=== PATIENT | female | born 1965 | race Caucasian/White ===

== ENCOUNTER → 2024-12-16 | Outpatient (CLI) | payer OTHER, SELFPAY ==
[2024-12-16 11:38] LABS: EXAGEN MAILED SPECIMEN
[2024-12-16 12:06] LABS: Color, Urine Straw (Yellow); Glucose, Dipstick Normal (Normal); Ketone-Dipstick Negative (Negative); Leukocyte Esterase-Dipstick 25 /ul (Negative); Nitrite-Dipstick Negative (Negative); Occult Blood-Urine 10 /ul (Negative); Protein-Dipstick Negative (Negative); Specific Gravity, Urine 1.005 (1.002-1.030); Urine Bilirubin Dipstick Negative (Negative)
[2024-12-16 12:17] LABS: Hematocrit 44.6 % (37-47); Hemoglobin 14.6 g/dL (12.0-15.0); Immature Granulocytes Count 0.030 X10^3/uL (0.0-0.0); Mean Corp Hgb Conc 32.7 g/dL (32-36); Mean Corpuscular Volume 87.3 fL (81-99); Mean Platelet Vol. 13.7 fl (6.2-12.0); NRBC Flagged by Analyzer 0 % (0-5); POSITIVE COUNT YES; RBC Distribution Width CV 12.1 % (11.6-14.6); RBC Distribution Width SD 38.9 fl (35.1-43.9); Red Blood Count 5.11 M/mm3 (4.2-5.4); White Blood Count 7.3 K/mm3 (4.4-11.0)
[2024-12-16 12:18] LABS: Differential Indicated SCAN CRITERIA MET
[2024-12-16 12:31] LABS: Creatinine, Urine (random) 20.10 mg/dL (28.00-217.00); Protein, Urine (Random) < 6.0 mg/dL (0.0-12.0); Protein:Creat Ratio UNABLE TO CALCULATE mg/g CRE (0-200)
[2024-12-16 12:42] LABS: Platelet Count 47 K/mm3 (150-450)
[2024-12-16 12:44] LABS: AST(SGOT) 28 U/L (<=31); Alanine Aminotransfer ALT/SGPT 33 U/L (<=34); Albumin, Serum 4.5 g/dL (3.5-5.0); Alkaline Phosphatase 89 U/L (35-104); Anion Gap 13 (5-15); BUN 10 mg/dL (4-19); BUN/Creat Ratio 19.1 RATIO (10-20); CRP 4.02 mg/L (0.0-3.0); Calcium,Total 9.9 mg/dL (7.6-11.0); Carbon Dioxide 26.1 mmol/L (21.0-32.0); Chloride 98 mmol/L (98-108); Globulin 4.0 g/dL (2.2-4.2); Glucose 95 mg/dL (70-99); Potassium 3.8 mmol/L (3.3-5.1)
[2024-12-20 15:08] LABS: Dilute Russell Viper Venom 48.0 sec (0.0-47.0); Dilute Russell Viper Venom Mix 40.2 sec (0.0-40.4); Interpretation Comment: (.); PTT-LA 36.5 sec (0.0-43.5)
== END | disposition home or self-care (01) ==
LOC: MTLAB 10:34
PROVIDERS: Referring Provider Internal Medicine Rheumatology; Visit Provider Internal Medicine Rheumatology
DX: D69.3 Immune thrombocytopenic purpura (principal); M18.0 Bilateral primary osteoarthritis of first carpometacarpal joints; Q66.70 Congenital pes cavus, unspecified foot; R76.8 Other specified abnormal immunological findings in serum; R76.0 Raised antibody titer
CPT/HCPCS: 36415; 80053; 81002; 82570; 84156; 85025; 85652; 86140

== ENCOUNTER → 2025-01-10 | Outpatient (CLI) | payer OTHER, SELFPAY ==
--- OUTSIDE RECORDS SUMMARY | 2025-01-10 07:26 | XMS RPT_ITS | CCD ---
Author Organization [facility] Care Team Providers Care Computer Application Developer Name Role Phone MAINOR SANDERS, DR LUCAS Primary Care Physician CRYSTAL SANDERS, JAELYN Quiroz Attending Unavailable MAINOR SANDERS, DR LUCAS Primary Care Unavailable CLINT ARANA MD Attending Unavailjohn HAYWARD MD, DR LUCAS Primary Care Unavailable SEBILLE CORE BAKER-CHILD DEVELOPMENT INSTRUCTOR, CAROLYN Attending Sarah HAYWARD MD, DR LUCAS Primary Care Unavailable MAINOR SANDERS, DR LUCAS Primary Care Physician SHAYY HAYWARD MD Consulting Unavailable SHAYY HAYWARD MD Referring Unavailable CLINT ARANA MD Admitting Unavaila CLINT Cameron MD Primary Care Unavaila CLINT Cameron MD Attending Unavaila ble PROVIDER, UNKNOWN Consulting Unavailable PROVIDER, UNKNOWN Consulting Unavailable PROVIDER, UNKNOWN Consulting Unavailable SHAYY HAYWARD MD Consulting Unavailable SEBILLE, CAROLYN CHILD DEVELOPMENT INSTRUCTOR Admitting Unavailable SEBILLE, CAROLYN CHILD DEVELOPMENT INSTRUCTOR Primary Care Unavailable SEBILLE, CAROLYN CHILD DEVELOPMENT INSTRUCTOR Attending Unavailable PROVIDER, UNKNOWN Consulting Unavailable PROVIDER, UNKNOWN Consulting Unavailable PROVIDER, UNKNOWN Consulting Unavailable SHAYY HAYWARD MD Consulting Unavailable JAELYN ROJAS MD Admitting Unavailable JAELYN ROJAS MD Primary Care Unavailable JAELYN ROJAS MD Attending Unavailable PROVIDER, UNKNOWN Consulting Unavailable PROVIDER, UNKNOWN Consulting Unavailable PROVIDER, UNKNOWN Consulting Unavailable NAHUM PRETTY Primary Care Unavailable NAHUM PRETTY Attending Unavailable SHAYY HAYWARD MD Consulting Unavailable NAHUM PRETTY Admitting Unavailable PROVIDER, UNKNOWN Consulting Unavailable PROVIDER, UNKNOWN Consulting Unavailable PROVIDER, UNKNOWN Consulting Unavailable MAINOR SANDERS, DR LUCAS Primary Care Unavailable SUKHWINDER SANDERS, DR SIDHU Attending Unavailab helen ROJAS MD, JAELYN Quiroz Attending Unavailable MAINOR SANDERS, DR LUCAS Primary Care Unavailable MAINOR SANDERS, DR LUCAS Primary Care Unavailable SUKHWINDER SANDERS, DR SIDHU Attending [facility] helen HAYWARD MD, DR LUCAS Primary Care Unavailable SUKHWINDER SANDERS, DR SIDHU Attending [facility] Physician, No Primary Primary Care Provider Unavailable Miguel SANDERS, Dr. Mcnally Attending Provider Miguel SANDERS, Dr. Mcnally Referring Provider Dali Rivera Referring Unavailable Dali Rivera Attending Unavailable Care Physician, No Primary Primary Care Unava ilable Allergies Allergy Classification Reported Allergen(s) Allergy Type Date of Onset Reaction(s) Facility (4 sources) Sulfonamides (Antibiotic); Translations: [sulfa drugs] Drug allergy [facility] (6 sources) Sulfonamide; Translations: [sulfa drugs] Drug allergy [facility] Medications Current Medications Medication Drug Class(es) Dates Sig (Normalized) Sig (Original) Ascorbic Acid (3 sources) Vitamin C Start: 07-29-2022 Vitamin C qDay, 0 Refill(s) Start Date: 07/29/22 Status: Ordered chlorophyllin (4 sources) Start: 01-09-2021 take 1 dose by mouth once daily chlorophyllin Dose : 90 mg =, Oral, qDay, 0 Refill(s) Start Date: 01/09/21 Status: Ordered Digestive Advantage Daily Probiotic oral capsule (10 sources) Start: 01-09-2021 take 1 capsule by mouth once daily Digestive Advantage Daily Probiotic oral capsule Dose = 1 cap(s), Oral, qDay, # 30 cap(s), 0 Refill(s) Start Date: 01/09/21 Status: Ordered Quantity: 30.0 Unit: cap(s) Repeat number: 1 Start: 01-09-2021 take 1 capsule by mo uth once daily Digestive Advantage Daily Probiotic oral capsule Dose = 1 cap(s), Oral, qDay, # 30 cap(s), 0 Refill(s) Start Date: 01/09/21 Status: Ordered Juice Plus capsule (10 sources) Start: 01-09-2021 take 1 tablet by harvey th once daily Juice Plus capsule Dose = 2 tab(s), Oral, Daily, 0 Refill(s) Start Date: 01/09/21 Status: Ordered Repeat number: 1 Start: 01-09-2021 take 1 tablet by harvey th once daily Juice Plus capsule Dose = 2 tab(s), Oral, Daily, 0 Refill(s) Start Date: 01/09/21 Status: Ordered Probiotic Formula (Bacillus Coagulans) oral capsule (1 source) Start: 01-09-2021 take 1 capsule by mouth once daily Probiotic Formula (Bacillus Coagulans) oral capsule Dose = 1 cap(s), Oral, qDay, # 30 cap(s), 0 Refill(s) Start Date: 01/09/21 Status: Ordered Vitamin B12 500 mcg oral tablet (3 sources) Start: 02-23-2024 Vitamin B12 50 0 mcg oral tablet Dose : 500 mcg = 1 tab(s), Oral, qDay, # 30 tab(s), 0 Refill(s) Start Date: 02/23/24 Status: Ordered Quantity: 30.0 Unit: tab(s) Repeat number: 1 Start: 02-23-2024 Vitamin B12 50 0 mcg oral tablet Dose : 500 mcg = 1 tab(s), Oral, qDay, # 30 tab(s), 0 Refill(s) Start Date: 02/23/24 Status: Ordered Vitamin D (2 sources) Start: 03-29-2024 vitamin d amna min d, 500 mcg, 0 Refill(s), 62.1 Start Date: 03/29/24 Status: Ordered Repeat number: 1 Start: 03-29-2024 vitamin d amna min d, 500 mcg, 0 Refill(s), 62.1 Start Date: 03/29/24 Status: Ordered Problems Problem Classification Problem Date Documented Date Episodic/Chronic Coagulation and hemorrhagic disorders (18 sources) Thrombocytopenic disorder; Translations: [Thrombocytopenia, unspecified] Onset: 03-25-2022 06-13-2021 Chronic Coagulation and hemorrhagic disorders (9 sources) 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, [address] DILUTE PT (dPT) 41.4 sec Normal 0.0-47.6 [facility] Comment on above: Performed By: #### L 4500.0100, L101.9900, L400.2011, L100.0100, L501.0900, L500.4050, L501.6710 #### [facility] [address] [place], [address] dPT Conf. Ratio 1.08 Ratio Normal 0.00-1.34 [facility] Comment on above: Performed By: #### L 4500.0100, L101.9900, L400.2010, L100.0100, L501.0900, L500.4050, L501.6710 #### [facility] [address] [place], [address] DRVVT 48.0 sec Abnormal 0.0-47.0 [facility] Comment on above: Performed By: #### L 4500.0100, L101.9900, L400.2010, L100.0100, L501.0900, L500.4050, L501.6710 #### [facility] [address] [place], [address] dRVVT MIX 40.2 sec Normal 0.0-40.4 [facility] Comment on above: Performed By: #### L 4500.0100, L101.9900, L400.2010, L100.0100, L501.0900, L500.4050, L501.6710 #### [facility] [address] [place], [address] Interpretation Comment: Normal . [facility] Comment on above: Result Comment: No l upus anticoagulant was detected. An extended dRVVT that corrects on mixing with normal plasma can be caused by a deficiency of one of the common pathway factors (X, V, II or fibrinogen). Performed at: [address] [id number] Full Decator Operator: Estela Mckee MD, Phone: [phone] Performed By: #### L 4500.0100, L101.9900, L400.2011, L100.0100, L501.0900, L500.4050, L501.6710 #### [facility] [address] [place], [place], [id number] THROMBIN TIME 20.1 sec Normal 0.0-23.0 [facility] Comment on above: Performed By: #### L 4500.0100, L101.9900, L400.2011, L100.0100, L501.0900, L500.4050, L501.6710 #### [facility] [address] [place], [place], [id number] Absolute lymphocyte countOrd ered By: Dalisesar Rivera on 12-16-2024 Lymphocytes Auto (Unsp spec) [#/Vol] 1.45 10*3/uL 0.83-4.51 [facility] Absolute neutrophil countOrd ered By: Dalisesar Rivera on 12-16-2024 Neutrophils (Bld) [#/Vol] 5.3 10*3/uL 2.0-7.7 [facility] Anion gap in Serum or Plasma Ordered By: Dali Rivera on 12-16-2024 Anion gap [Moles/Vol] 13 mmol/L 5- [facility] Automated lymphocyte count a s percentage of total leukocytesOrdered By: Dali Rivera on 12-16-2024 Lymphocytes/100 WBC Auto (Unsp spec) 19.9 % - [facility] BUN/creatinine ratioOrdered By: Dalisesar Rivera on 12-16-2024 Urea nitrogen/Creatinine [Mass ratio] 19.1 mg/mg - [facility] Basophil percentageOrdered B y: Dali Rivera on 12-16-2024 Basophils/100 WBC (Bld) 0.5 % 0-1 [facility] Bilirubin Test strip Ql (U)O rdered By: Dali Rivera on 12-16-2024 Bilirubin Ql (U) Negative Negative [facility] Bilirubin, totalOrdered By: Dali Rivera on 12-16-2024 Bilirubin [Mass/Vol] 0.56 mg/dL 0.00-1.30 [facility] CBC W/Diff, Automatedon 11-29 PLT EST MKD DEC Normal ADEQ [facility] Comment on above: Performed By: #### L 4500.0100, L101.9900, L400.2010, L100.0100, L501.0900, L500.4050, L501.6710 #### [facility] [address] [place], [address] CRPon 12-16-2024 C-REACTIVE PROT 4.02 mg/L High 0.0-3.0 [facility] Comment on above: Performed By: #### L 4500.0100, L101.9900, L400.2010, L100.0100, L501.0900, L500.4050, L501.6710 #### [facility] [address] [place], [place], [id number] Carbon dioxide, total [Moles /volume] in Central venous bloodOrdered By: Dali Rivera on 12-16-2024 CO2 [Moles/Vol] 26.1 mmol/L 21.0-32.0 [facility] Chloride assayOrdered By: Kevyn Rivera on 12-16-2024 Chloride [Moles/Vol] 98 mmol/L 98-108 [facility] Comprehensive Metabolic Prof ilon 12-16-2024 Albumin [Mass/Vol] 4.5 g/dL Normal 3.5-5.0 [facility] Comment on above: Performed By: #### L 4500.0100, L101.9900, L400.2010, L100.0100, L501.0900, L500.4050, L501.6710 #### [facility] [address] [place], [address] Albumin/Globulin [Mass ratio] 1.1 {ratio} Normal 0.9-2.4 [facility] Comment on above: Performed By: #### L 4500.0100, L101.9900, L400.2010, L100.0100, L501.0900, L500.4050, L501.6710 #### [facility] [address] [place], [address] ALK PHOS 89 U/L Normal 35-104 [facility] Comment on above: Performed By: #### L 4500.0100, L101.9900, L400.2010, L100.0100, L501.0900, L500.4050, L501.6710 #### [facility] [address] [place], [address] ALT [Catalytic activity/Vol] 33 U/L Normal <=34 [facility] Comment on above: Performed By: #### L 4500.0100, L101.9900, L400.2010, L100.0100, L501.0900, L500.4050, L501.6710 #### [facility] [address] [place], [address] AST [Catalytic activity/Vol] 28 U/L Normal <=31 [facility] Comment on above: Performed By: #### L 4500.0100, L101.9900, L400.2010, L100.0100, L501.0900, L500.4050, L501.6710 #### [facility] [address] [place], [address] Bilirubin [Mass/Vol] 0.56 mg/dL Normal 0.00-1.30 [facility] Comment on above: Performed By: #### L 4500.0100, L101.9900, L400.2010, L100.0100, L501.0900, L500.4050, L501.6710 #### [facility] [address] [place], [address] BUN/CRE 19.1 RATIO Normal 10-20 [facility] Comment on above: Performed By: #### L 4500.0100, L101.9900, L400.2011, L100.0100, L501.0900, L500.4050, L501.6710 #### [facility] [address] [place], [address] Calcium [Mass/Vol] 9.9 mg/dL Normal 7.6-11.0 [facility] Comment on above: Performed By: #### L 4500.0100, L101.9900, L400.2010, L100.0100, L501.0900, L500.4050, L501.6710 #### [facility] [address] [place], [address] Chloride [Moles/Vol] 98 mmol/L Normal 98-108 [facility] Comment on above: Performed By: #### L 4500.0100, L101.9900, L400.2010, L100.0100, L501.0900, L500.4050, L501.6710 #### [facility] [address] [place], [address] CO2 [Moles/Vol] 26.1 mmol/L Normal 21.0-32.0 [facility] Comment on above: Performed By: #### L 4500.0100, L101.9900, L400.2010, L100.0100, L501.0900, L500.4050, L501.6710 #### [facility] [address] [place], [address] Creatinine [Mass/Vol] 0.55 mg/dL Low 0.70-1.20 [facility] Comment on above: Performed By: #### L 4500.0100, L101.9900, L400.2010, L100.0100, L501.0900, L500.4050, L501.6710 #### [facility] [address] [place], [address] GAP 13 Normal 5-15 [facility] Comment on above: Performed By: #### L 4500.0100, L101.9900, L400.2010, L100.0100, L501.0900, L500.4050, L501.6710 #### [facility] [address] [place], [address] GFR/1.73 sq M.predicted among non-blacks MDRD (S/P/Bld) [Vol rate/Area] 106 mL/min/{1.73_m2} Normal >60 [facility] Comment on above: Result Comment: mL/m in/1.73m2 CKD-EPI Creatinine Equation (2020) Performed By: #### L 4500.0100, L101.9900, L400.2010, L100.0100, L501.0900, L500.4050, L501.6710 #### [facility] [address] [place], [address] Globulin (S) [Mass/Vol] 4.0 g/dL Normal 2.2-4.2 [facility] Comment on above: Performed By: #### L 4500.0100, L101.9900, L400.2010, L100.0100, L501.0900, L500.4050, L501.6710 #### [facility] [address] [place], [address] Glucose [Mass/Vol] 95 mg/dL Normal 70-99 [facility] Comment on above: Performed By: #### L 4500.0100, L101.9900, L400.2010, L100.0100, L501.0900, L500.4050, L501.6710 #### [facility] [address] [place], [address] Potassium [Moles/Vol] 3.8 mmol/L Normal 3.3-5.1 [facility] Comment on above: Performed By: #### L 4500.0100, L101.9900, L400.2011, L100.0100, L501.0900, L500.4050, L501.6710 #### [facility] [address] [place], [address] Sodium [Moles/Vol] 137 mmol/L Normal 133-145 [facility] Comment on above: Performed By: #### L 4500.0100, L101.9900, L400.2010, L100.0100, L501.0900, L500.4050, L501.6710 #### [facility] [address] [place], [address] T PROT 8.5 g/dL High 5.9-8.4 [facility] Comment on above: Performed By: #### L 4500.0100, L101.9900, L400.2010, L100.0100, L501.0900, L500.4050, L501.6710 #### [facility] [address] [place], [address] Urea nitrogen [Mass/Vol] 10 mg/dL Normal 4-19 [facility] Comment on above: Performed By: #### L 4500.0100, L101.9900, L400.2010, L100.0100, L501.0900, L500.4050, L501.6710 #### [facility] [address] [place], [address] Dilute Sean's viper venom timeOrdered By: Dali Rivera on 12-16-2024 dRVVT Coag (PPP) [Time] 48.0 s High 0.0-47.0 [facility] dRVVT Coag (PPP) [Time] 40.2 s 0.0-40.4 [facility] EXAGENon 12-16-2024 EXAGEN MAILED SPECIMEN Normal [facility] Comment on above: Performed By: #### L 801.1549 #### [facility] [address] [place], [place], [address] Eosinophil percentageOrdered By: Dali Rivera on 12-16-2024 Eosinophils/100 WBC (Bld) 1.6 % 0-5 [facility] Erythrocyte Sed Rateon 12-16 SED RATE 16 mm/hr Normal 0-30 [facility] Comment on above: Performed By: #### L 4500.0100, L101.9900, L400.2011, L100.0100, L501.0900, L500.4050, L501.6710 #### [facility] [address] [place], [place], [address] Erythrocyte distribution wid th ratioOrdered By: Dali Rivera on 12-16-2024 Erythrocyte distribution width (RBC) [Ratio] 12.1 % 11.6-14.6 [facility] Erythrocyte distribution wid th standard deviationOrdered By: Dali Rivera on 12-16-2024 Erythrocyte distribution width (RBC) [Ratio] 38.9 fl 35.1-43.9 [facility] Erythrocyte sedimentation ra teOrdered By: Dali Rivera on 12-16-2024 ESR (Bld) [Velocity] 16 mm/h 0-30 [facility] Glomerular filtration rate ( GFR) estimation/1.73 sq m using serum, plasma, or whole bOrdered By: Dali Rivera on 12-16-2024 GFR/1.73 sq M.predicted among non-blacks MDRD (S/P/Bld) [Vol rate/Area] 106 mL/min/{1.73_m2} >60 [facility] Comment on above: mL/min/1.73m2 CKD-EP I Creatinine Equation (2020) Hematocrit Auto (Bld) [Volum e fraction]Ordered By: Dali Rivera on 12-16-2024 Hematocrit (Bld) [Volume fraction] 44.6 % 37-47 [facility] Hemoglobin measurementOrdere d By: Dali Rivera on 12-16-2024 Hemoglobin (Bld) [Mass/Vol] 14.6 g/dL 12.0-15.0 [facility] Immature granulocytes/100 WB C Auto (Bld)Ordered By: Dali Rivera on 12-16-2024 Immature granulocytes/100 WBC (Bld) 0.400 % 0.0-0.9 [facility] Comment on above: IG% - Immature Granu locytes (promyelocytes, myelocytes and metamyelocytes) > 1% indicates that a LEFT SHIFT is Present. Ketones Test strip Ql (U)Ord ered By: Dali Rivera on 12-16-2024 Ketones Ql (U) Negative Negative [facility] - Chemistry and C hemistry - challengeOrdered By: Dali Rivera on 12-16-2024 AST [Catalytic activity/Vol] 28 U/L <32 [facility] MCV (mean corpuscular volume ) determinationOrdered By: Dali Rivera on 12-16-2024 MCV (RBC) [Entitic vol] 87.3 fL 81-99 [facility] Mean corpuscular hemoglobin (MCH) determinationOrdered By: Dali Rivera on 12-16-2024 MCH (RBC) [Entitic mass] 28.6 pg 27.0-32.0 [facility] Mean corpuscular hemoglobin concentration (MCHC) determinationOrdered By: Dali Rivera 12-16-2024 MCHC (RBC) [Mass/Vol] 32.7 g/dL 32-36 [facility] Mean platelet volume determi nationOrdered By: Dali Rivera on 12-16-2024 Platelet mean volume (Bld) [Entitic vol] 13.7 fL High 6.2-12.0 [facility] Monocyte percentageOrdered B y: Dali Rivera on 12-16-2024 Monocytes/100 WBC (Bld) 5.6 % 0-10 [facility] Neutrophil percentageOrdered By: Dali Rivera on 12-16-2024 Neutrophils/100 WBC (Bld) 72.0 % High 47-70 [facility] Nitrite Test strip Ql (U)Ord ered By: Dali Rivera on 12-16-2024 Nitrite Ql (U) Negative Negative [facility] Nucleated red blood cell per centageOrdered By: Dali Rivera on 12-16-2024 Nucleated RBC/100 WBC (Bld) [Ratio] 0 % 0-5 [facility] Platelet countOrdered By: Kevyn Rivera on 12-16-2024 Platelets (Bld) [#/Vol] 47 10*3/uL Low 150-450 [facility] Comment on above: CRITICAL VALUE MURRAY D CANDY KOCH M.A. ('S OFFICE.)12/16/24 1241 Karlo EsparzaRESULTS READ BACK BY SAME. Previous reported result: 47 [id number] by: KIMBERLY on 12/16/24:1242 AMENDED REPORT 12/16/24 1242 PLT previously reported as: 47 *L K/mm3 Platelet estimateOrdered By: Dali Rivera on 12-16-2024 Platelets LM Ql (Bld) MKD DEC ADEQ [facility] Potassium measurement (mass/ volume)Ordered By: Dali Rivera on 12-16-2024 Potassium (Unsp spec) [Mass/Vol] 3.8 mmol/L 3.3-5.1 [facility] Protein Test strip Ql (U)Ord ered By: Dali Rivera on 12-16-2024 Protein Ql (U) Negative Negative [facility] Protein+Creatinine Ratio,Uri neon 12-16-2024 PROT:CRE RATIO UNABLE TO CALCULATE Normal 0-200 [facility] Comment on above: Performed By: #### L 4500.0100, L101.9900, L400.2010, L100.0100, L501.0900, L500.4050, L501.6710 #### [facility] [address] [place], [address] PROTEIN,UR.RAN. < 6.0 Normal 0.0-12.0 [facility] Comment on above: Performed By: #### L 4500.0100, L101.9900, L400.2010, L100.0100, L501.0900, L500.4050, L501.6710 #### [facility] [address] [place], [address] UR CREAT 20.10 mg/dL Low 28.00-217.00 [facility] Comment on above: Performed By: #### L 4500.0100, L101.9900, L400.2010, L100.0100, L501.0900, L500.4050, L501.6710 #### [facility] [address] [place], [address] RBC Auto (Bld) [#/Vol]Ordere d By: Dali Rivera on 12-16-2024 RBC (Bld) [#/Vol] 5.11 10*6/uL 4.2-5.4 [facility] Random urine creatinine abdirizak urement (mass/volume)Ordered By: Dali Rivera on 12-16-2024 Creatinine Unsp time (U) [Mass/Vol] 20.10 mg/dL Low 28.00-217.00 [facility] Serum creatinine measurement (mass/volume)Ordered By: Dali Rivera on 12-16-2024 Creatinine [Mass/Vol] 0.55 mg/dL Low 0.70-1.20 [facility] Serum globulin measurementOr dered By: Dali Rivera on 12-16-2024 Globulin (S) [Mass/Vol] 4.0 g/dL 2.2-4.2 [facility] Serum glucose measurement (m ass/volume)Ordered By: Dali Rivera on 12-16-2024 Glucose [Mass/Vol] 95 mg/dL 70-99 [facility] Serum or plasma C reactive p rotein measurement (mass/volume)Ordered By: Dali Rivera on 12-16-2024 CRP [Mass/Vol] 4.02 mg/L High 0.0-3.0 [facility] Serum or plasma alanine barry otransferase (ALT) measurementOrdered By: Dali Rivera on 12-16-2024 ALT [Catalytic activity/Vol] 33 U/L <35 [facility] Serum or plasma albumin abdirizak urement (mass/volume)Ordered By: Dali Rivera on 12-16-2024 Albumin [Mass/Vol] 4.5 g/dL 3.5-5.0 [facility] Serum or plasma albumin/glob ulin mass ratioOrdered By: Dali Rivera on 12-16-2024 Albumin/Globulin [Mass ratio] 1.1 {ratio} 0.9-2.4 [facility] Serum or plasma alkaline ashley sphatase measurementOrdered By: Dali Rivera on 12-16-2024 ALP [Catalytic activity/Vol] 89 U/L 35-104 [facility] Serum or plasma calcium abdirizak urement (mass/volume)Ordered By: Dali Rivera on 12-16-2024 Calcium [Mass/Vol] 9.9 mg/dL 7.6-11.0 [facility] Serum or plasma urea nitroge n measurement (mass/volume)Ordered By: Dali Rviera on 12-16-2024 Urea nitrogen [Mass/Vol] 10 mg/dL 4-19 [facility] Sodium levelOrdered By: Abi Rivera on 12-16-2024 Sodium [Moles/Vol] 137 mmol/L 133-145 [facility] Thrombin timeOrdered By: Brooklyn Rivera on 12-16-2024 Thrombin time Coag (PPP) [Time] 20.1 sec 0.0-23.0 [facility] Total proteinOrdered By: Brooklyn Rivera on 12-16-2024 Protein [Mass/Vol] 8.5 g/dL High 5.9-8.4 [facility] Urinalysis, Routine (Dipstic k)on 12-16-2024 BILIRUBIN URINE Negative Normal Negative [facility] Comment on above: Order Comment: CLEAN CATCH Performed By: #### L 4500.0100, L101.9900, L400.2011, L100.0100, L501.0900, L500.4050, L501.6710 #### [facility] [address] [place], [address] Clarity (U) Clear Normal Clear [facility] Comment on above: Order Comment: CLEAN CATCH Performed By: #### L 4500.0100, L101.9900, L400.2011, L100.0100, L501.0900, L500.4050, L501.6710 #### [facility] [address] [place], [address] Color (U) Straw Normal Yellow [facility] Comment on above: Order Comment: CLEAN CATCH Performed By: #### L 4500.0100, L101.9900, L400.2011, L100.0100, L501.0900, L500.4050, L501.6710 #### [facility] [address] [place], [address] GLUCOSE, UR Normal Normal Normal [facility] Comment on above: Order Comment: CLEAN CATCH Performed By: #### L 4500.0100, L101.9900, L400.2010, L100.0100, L501.0900, L500.4050, L501.6710 #### [facility] [address] [place], [address] KETONE UR Negative Normal Negative [facility] Comment on above: Order Comment: CLEAN CATCH Performed By: #### L 4500.0100, L101.9900, L400.2010, L100.0100, L501.0900, L500.4050, L501.6710 #### [facility] [address] [place], [address] LEUK ESTERASE 25 /ul Abnormal Negative [facility] Comment on above: Order Comment: CLEAN CATCH Performed By: #### L 4500.0100, L101.9900, L400.2010, L100.0100, L501.0900, L500.4050, L501.6710 #### [facility] [address] [place], [address] Nitrite Ql (U) Negative Normal Negative [facility] Comment on above: Order Comment: CLEAN CATCH Performed By: #### L 4500.0100, L101.9900, L400.2011, L100.0100, L501.0900, L500.4050, L501.6710 #### [facility] [address] [place], [address] OCCULT BLOOD-UR 10 /ul Abnormal Negative [facility] Comment on above: Order Comment: CLEAN CATCH Performed By: #### L 4500.0100, L101.9900, L400.2010, L100.0100, L501.0900, L500.4050, L501.6710 #### [facility] [address] [place], [address] pH UR 7.0 Normal 5.0 - 8.0 [facility] Comment on above: Order Comment: CLEAN CATCH Performed By: #### L 4500.0100, L101.9900, L400.2010, L100.0100, L501.0900, L500.4050, L501.6710 #### [facility] [address] [place], [address] PROT DIPSTX Negative Normal Negative [facility] Comment on above: Order Comment: CLEAN CATCH Performed By: #### L 4500.0100, L101.9900, L400.2010, L100.0100, L501.0900, L500.4050, L501.6710 #### [facility] [address] [place], [address] SP.GR. DIPSTX 1.005 Normal 1.002-1.030 [facility] Comment on above: Order Comment: CLEAN CATCH Performed By: #### L 4500.0100, L101.9900, L400.2010, L100.0100, L501.0900, L500.4050, L501.6710 #### [facility] [address] [place], [address] UROBILI Normal Normal Normal [facility] Comment on above: Order Comment: CLEAN CATCH Performed By: #### L 4500.0100, L101.9900, L400.2011, L100.0100, L501.0900, L500.4050, L501.6710 #### [facility] [address] [place], [address] Urine clarityOrdered By: Brooklyn Rivera on 12-16-2024 Clarity (U) Clear Clear [facility] Urine color determinationOrd ered By: Dali Rivera on 12-16-2024 Color (U) Straw Yellow [facility] Urine glucose detectionOrder ed By: Dali Rivera on 12-16-2024 Glucose Ql (U) Normal mg/dl Normal [facility] Urine leukocyte esterase det ection by dipstickOrdered By: Dali Rivera on 12-16-2024 Leukocyte esterase Test strip Ql (U) 25 /ul High Negative [facility] Urine pHOrdered By: Dali lozada on 12-16-2024 pH (U) 7.0 [pH] 5.0 - 8.0 [facility] Urine protein measurement (m ass/volume)Ordered By: Dali Rivera on 12-16-2024 Protein (U) [Mass/Vol] mg/dL 0.0-12.0 [facility] Urine protein/creatinine mas s ratioOrdered By: Dali Rivera on 12-16-2024 Protein/Creatinine (U) [Mass ratio] UNABLE TO CALCULATE mg/g CRE 0-200 [facility] Urine specific gravity measu rementOrdered By: Dali Rivera on 12-16-2024 Specific gravity (U) [Rel density] 1.005 1.002-1.030 [facility] Urine urobilinogen measureme ntOrdered By: Dali Rivera on 12-16-2024 Urobilinogen Ql (U) Normal mg/dl Normal [facility] White blood cell (WBC) count Ordered By: Dali Rivera on 12-16-2024 WBC (Bld) [#/Vol] 7.3 10*3/uL 4.4-11.0 [facility] [id number] IgG AND IgM [CCL]on 09-26-2024 [id number] IgG AND IgM [CCL] Normal [facility] Comment on above: Result Comment: _BET A-2 GLYCOPROTEIN IgG IgM [CCL]_ SEE SCANNED REPORT Performed By: #### 2 56688 #### [facility],[address] [place] [address] .Auto Diffon 09-22-2024 Basophil, Absolute 0.1 10 3/mcL Normal 0.0-0.3 [facility] Comment on above: Performed By: #### 1 08107, IGA, LD, FOL, SPE, FERR, IGG, PFA, ANEU, DIMER, FIB, CBC, 786709, RF, 927658, PRO, HIV, 321436, 727097, APTT, FES, RETIC, ADIFF, HCV1, HBSAG, 019140, ANAIFS, 200397, IGM, 686076, HAPTO #### [address] [address] Basophils/100 WBC (Bld) 1.0 % Normal 0.0-2.5 [facility] Comment on above: Performed By: #### 1 54091, IGA, LD, FOL, SPE, FERR, IGG, PFA, ANEU, DIMER, FIB, CBC, 140432, RF, 783520, PRO, HIV, 659420, 615203, APTT, FES, RETIC, ADIFF, HCV1, HBSAG, 013278, ANAIFS, 984287, IGM, 463090, HAPTO #### [address] [address] Eosinophil, Absolute 0.1 10 3/mcL Normal 0.0-0.7 [facility] Comment on above: Performed By: #### 1 50665, IGA, LD, FOL, SPE, FERR, IGG, PFA, ANEU, DIMER, FIB, CBC, 015829, RF, 695712, PRO, HIV, 714089, 852731, APTT, FES, RETIC, ADIFF, HCV1, HBSAG, 008697, ANAIFS, 644240, IGM, 663331, HAPTO #### [address] [address] Eosinophils/100 WBC (Bld) 2.0 % Normal 0.0-6.0 [facility] Comment on above: Performed By: #### 1 83274, IGA, LD, FOL, SPE, FERR, IGG, PFA, ANEU, DIMER, FIB, CBC, 677758, RF, 616265, PRO, HIV, 433833, 919224, APTT, FES, RETIC, ADIFF, HCV1, HBSAG, 929537, ANAIFS, 713746, IGM, 017760, HAPTO #### [address] [address] Lymphocyte, Absolute 1.6 10 3/mcL Normal 0.9-4.3 [facility] Comment on above: Performed By: #### 1 13852, IGA, LD, FOL, SPE, FERR, IGG, PFA, ANEU, DIMER, FIB, CBC, 778394, RF, 054579, PRO, HIV, 945792, 163604, APTT, FES, RETIC, ADIFF, HCV1, HBSAG, 471112, ANAIFS, 919392, IGM, 479552, HAPTO #### [address] [address] Lymphocytes/100 WBC (Bld) 23.1 % Normal 20.0-40.0 [facility] Comment on above: Performed By: #### 1 47358, IGA, LD, FOL, SPE, FERR, IGG, PFA, ANEU, DIMER, FIB, CBC, 502569, RF, 654000, PRO, HIV, 788360, 595696, APTT, FES, RETIC, ADIFF, HCV1, HBSAG, 260912, ANAIFS, 569556, IGM, 471113, HAPTO #### [address] [address] Monocyte, Absolute 0.5 10 3/mcL Normal 0.1-1.4 [facility] Comment on above: Performed By: #### 1 90840, IGA, LD, FOL, SPE, FERR, IGG, PFA, ANEU, DIMER, FIB, CBC, 858948, RF, 072194, PRO, HIV, 163640, 407868, APTT, FES, RETIC, ADIFF, HCV1, HBSAG, 066299, ANAIFS, 294875, IGM, 036513, HAPTO #### [address] [address] Monocytes/100 WBC (Bld) 8.0 % Normal 2.0-13.0 [facility] Comment on above: Performed By: #### 1 92757, IGA, LD, FOL, SPE, FERR, IGG, PFA, ANEU, DIMER, FIB, CBC, 241700, RF, 173494, PRO, HIV, 634672, 983201, APTT, FES, RETIC, ADIFF, HCV1, HBSAG, 552057, ANAIFS, 783204, IGM, 458260, HAPTO #### [address] [address] Neutrophils/100 WBC (Bld) 65.9 % Normal 50.0-75.0 [facility] Comment on above: Performed By: #### 1 27201, IGA, LD, FOL, SPE, FERR, IGG, PFA, ANEU, DIMER, FIB, CBC, 055002, RF, 409447, PRO, HIV, 787300, 160275, APTT, FES, RETIC, ADIFF, HCV1, HBSAG, 605019, ANAIFS, 197904, IGM, 035317, HAPTO #### [address] [address] .NEUABSon 09-22-2024 Neutrophil, Absolute 4.5 10 3/mcL Normal 2.3-8.1 [facility] Comment on above: Performed By: #### 1 37008, IGA, LD, FOL, SPE, FERR, IGG, PFA, ANEU, DIMER, FIB, CBC, 781005, RF, 839767, PRO, HIV, 165570, 314370, APTT, FES, RETIC, ADIFF, HCV1, HBSAG, 768561, ANAIFS, 018182, IGM, 584728, HAPTO #### [address] [address] CBCon 09-22-2024 Erythrocyte distribution width (RBC) [Ratio] 13.3 % Normal 11.5-15.5 [facility] Comment on above: Performed By: #### 1 27504, IGA, LD, FOL, SPE, FERR, IGG, PFA, ANEU, DIMER, FIB, CBC, 845284, RF, 808632, PRO, HIV, 023156, 691779, APTT, FES, RETIC, ADIFF, HCV1, HBSAG, 709794, ANAIFS, 349310, IGM, 327623, HAPTO #### [address] [address] Hematocrit (Bld) [Volume fraction] 41.8 % Normal 34.0-46.0 [facility] Comment on above: Performed By: #### 1 79917, IGA, LD, FOL, SPE, FERR, IGG, PFA, ANEU, DIMER, FIB, CBC, 313689, RF, 587195, PRO, HIV, 491671, 074433, APTT, FES, RETIC, ADIFF, HCV1, HBSAG, 749810, ANAIFS, 645520, IGM, 386782, HAPTO #### [address] [address] Hgb 13.9 G/dL Normal 12.0-16.0 [facility] Comment on above: Performed By: #### 1 65202, IGA, LD, FOL, SPE, FERR, IGG, PFA, ANEU, DIMER, FIB, CBC, 671104, RF, 727970, PRO, HIV, 797111, 046621, APTT, FES, RETIC, ADIFF, HCV1, HBSAG, 917969, ANAIFS, 018330, IGM, 020673, HAPTO #### [address] [address] MCH (RBC) [Entitic mass] 28.5 pg Normal 27.0-33.0 [facility] Comment on above: Performed By: #### 1 80018, IGA, LD, FOL, SPE, FERR, IGG, PFA, ANEU, DIMER, FIB, CBC, 466793, RF, 332528, PRO, HIV, 242942, 839842, APTT, FES, RETIC, ADIFF, HCV1, HBSAG, 628142, ANAIFS, 950839, IGM, 914034, HAPTO #### [address] [address] MCHC 33.3 G/dL Normal 32.0-36.0 [facility] Comment on above: Performed By: #### 1 92279, IGA, LD, FOL, SPE, FERR, IGG, PFA, ANEU, DIMER, FIB, CBC, 442672, RF, 733392, PRO, HIV, 219868, 034855, APTT, FES, RETIC, ADIFF, HCV1, HBSAG, 509285, ANAIFS, 559342, IGM, 222761, HAPTO #### [place] [address] MCV (RBC) [Entitic vol] 85.4 fL Normal 80.0-99.0 [facility] Comment on above: Performed By: #### 1 80128, IGA, LD, FOL, SPE, FERR, IGG, PFA, ANEU, DIMER, FIB, CBC, 044359, RF, 284339, PRO, HIV, 106697, 157404, APTT, FES, RETIC, ADIFF, HCV1, HBSAG, 676629, ANAIFS, 114763, IGM, 211380, HAPTO #### [place] [address] Platelet 53 10 3/mcL Low 150-450 [facility] Comment on above: Performed By: #### 1 19795, IGA, LD, FOL, SPE, FERR, IGG, PFA, ANEU, DIMER, FIB, CBC, 744436, RF, 733074, PRO, HIV, 911921, 719821, APTT, FES, RETIC, ADIFF, HCV1, HBSAG, 563161, ANAIFS, 152561, IGM, 039377, HAPTO #### [place] [id number] Platelet mean volume (Bld) [Entitic vol] 10.9 fL High 6.6-10.5 [facility] Comment on above: Performed By: #### 1 64242, IGA, LD, FOL, SPE, FERR, IGG, PFA, ANEU, DIMER, FIB, CBC, 760286, RF, 442780, PRO, HIV, 133130, 880955, APTT, FES, RETIC, ADIFF, HCV1, HBSAG, 105146, ANAIFS, 324745, IGM, 924908, HAPTO #### [place] [address] RBC 4.90 10 6/mcL Normal 4.10-5.30 [facility] Comment on above: Performed By: #### 1 71139, IGA, LD, FOL, SPE, FERR, IGG, PFA, ANEU, DIMER, FIB, CBC, 698361, RF, 216084, PRO, HIV, 990224, 575947, APTT, FES, RETIC, ADIFF, HCV1, HBSAG, 889079, ANAIFS, 198552, IGM, 963393, HAPTO #### [place] [address] WBC 6.8 10 3/mcL Normal 4.5-10.8 [facility] Comment on above: Performed By: #### 1 57348, IGA, LD, FOL, SPE, FERR, IGG, PFA, ANEU, DIMER, FIB, CBC, 665898, RF, 703437, PRO, HIV, 331022, 218434, APTT, FES, RETIC, ADIFF, HCV1, HBSAG, 971666, ANAIFS, 257485, IGM, 009419, HAPTO #### [place] [address] LABORATORYOrdered By: SYSTEM SYSTEM on 09-22-2024 Basophils (Bld) [#/Vol] 0.1 103/mcL Normal 0.0 - 0.3 10^3/mcL Workflow SS Basophils/100 WBC (Bld) 1.0 % Normal 0.0 - 2.5 % Workflow SS Eosinophils (Bld) [#/Vol] 0.1 103/mcL Normal 0.0 - 0.7 10^3/mcL Workflow SS Eosinophils/100 WBC (Bld) 2.0 % Normal 0.0 - 6.0 % Workflow SS Erythrocyte distribution width (RBC) [Ratio] 13.3 % Normal 11.5 - 15.5 % AH Workflow SS Hematocrit (Bld) [Volume fraction] 41.8 % Normal 34.0 - 46.0 % AH Workflow SS Hemoglobin (Bld) [Mass/Vol] 13.9 G/dL Normal 12.0 - 16.0 G/dL AH Workflow SS Lymphocytes (Bld) [#/Vol] 1.6 103/mcL Normal 0.9 - 4.3 10^3/mcL AH Workflow SS Lymphocytes/100 WBC (Bld) 23.1 % Normal 20.0 - 40.0 % AH Workflow SS MCH (RBC) [Entitic mass] 28.5 pg Normal 27. 0 - 33.0 pg AH Workflow SS MCHC 33.3 G/dL Normal 32.0 - 36.0 G/dL AH Workflow SS MCV (RBC) [Entitic vol] 85.4 fL Normal 80.0 - 99.0 fL AH Workflow SS Monocytes (Bld) [#/Vol] 0.5 103/mcL Normal 0.1 - 1.4 10^3/mcL AH Workflow SS Monocytes/100 WBC (Bld) 8.0 % Normal 2.0 - 13.0 % AH Workflow SS Neutrophils (Bld) [#/Vol] 4.5 103/mcL Normal 2.3 - 8.1 10^3/mcL AH Workflow SS Neutrophils/100 WBC (Bld) 65.9 % Normal 50.0 - 75.0 % AH Workflow SS Platelet mean volume (Bld) [Entitic vol] 10.9 fL High 6.6 - 10.5 fL AH Workflow SS Platelets (Bld) [#/Vol] 53 103/mcL Low 150 - 450 10^3/mcL AH Workflow SS RBC (Bld) [#/Vol] 4.90 106/mcL Normal 4.10 - 5.3 0 10^6/mcL AH Workflow SS WBC (Bld) [#/Vol] 6.8 103/mcL Normal 4.5 - 10.8 10^3/mcL AH Workflow SS LUPUS ANTICOAG PANEL [CCL]on 09-13-2024 LUPUS ANTICOAG PANEL [CCL] Normal [facility] Comment on above: Result Comment: _LUP US ANTICOAG PANEL [CCL]_ SEE SCANNED REPORT Performed By: #### 2 97145 #### [facility],[address] [place] [address] BETA 2 GP, ABS, IgA EA [CCL] on 09-11-2024 Beta-2 GP Abs, IgA 14 DANILO Normal <=20 [facility] Comment on above: Result Comment: Perf ormed By: [facility] [address] [place] [address] Booth Operator: Erickson Granados MD, PhD CLIA Number: [id number] [facility] [address] [place] [address] Merlin Pritchard III, M.D. [id number] Performed By: #### 2 18133 #### [address] [address] CARDIOLIPIN ANTIBODIES [CCL] on 09-09-2024 Cardiolipin Ab, IgA <9.0 Normal <12.0 [facility] Comment on above: Result Comment: <12 APL Negative 12-20 APL Indeterminate >20 APL Positive The following results were obtained with the [employer] QUANTA Lite ROBYN IgA III PAULINO. Cardiolipin IgA values obtained with the different manufacturers' assay methods may not be used interchangeably. The magnitude of the reported IgA levels cannot be correlated to an endpoint titer. This test is used as an aid in diagnosis of anti-phospholipid syndrome. The test may occasionally be positive in patients with a range of underlying conditions, secondary syphilis, HIV infection, active Hepatitis C, endocarditis, among others. Clinical correlation is required. Performed By: #### 2 64516 #### [address] [address] Cardiolipin Ab, IgG <9.0 Normal <15.0 [facility] Comment on above: Result Comment: <15 GPL Negative 15-20 GPL Indeterminate >20 GPL Positive The following results were obtained with the [employer] QUANTA Lite ROBYN IgG III PAULINO. Cardiolipin IgG values obtained with the different manufacturers' assay methods may not be used interchangeably. The magnitude of the reported IgG levels cannot be correlated to an endpoint titer. This test is used as an aid in diagnosis of anti-phospholipid syndrome. The test may occasionally be positive in patients with a range of underlying conditions, secondary syphilis, HIV infection, active Hepatitis C, endocarditis, among others. Clinical correlation is required. Performed By: #### 2 96927 #### [address] [place] [address] Cardiolipin Ab, IgM <9.0 Normal <12.5 [facility] Comment on above: Result Comment: <12. 5 MPL Negative 12.5-20 MPL Indeterminate >20 MPL Positive The following results were obtained with the LiquidCompassA Lite ROBYN IgM III PAULINO. Cardiolipin IgM values obtained with the different manufacturers' assay methods may not be used interchangeably. The magnitude of the reported IgM levels cannot be correlated to an endpoint titer. ??? This test is used as an aid in diagnosis of anti-phospholipid syndrome. The test may occasionally be positive in patients with a range of underlying conditions, secondary syphilis, HIV infection, active Hepatitis C, endocarditis, among others. Clinical correlation is required. [place] [address] [place] [address] Merlin Pritchard III, M.D. [id number] Performed By: #### 2 84106 #### [place] [address] CIRANon 03-02-2024 Dil Sean Viper Venom 42.3 seconds High 30.0-42.0 [facility] Comment on above: Order Comment: today Performed By: #### 1 05515, IGA, LD, FOL, SPE, FERR, IGG, PFA, ANEU, DIMER, FIB, CBC, 047865, RF, 034407, PRO, HIV, 334011, 144905, APTT, FES, RETIC, ADIFF, HCV1, HBSAG, 002404, ANAIFS, 364243, IGM, 138419, HAPTO #### [place] [address] [place] [address] [place] Interpretation See Below Normal [facility] Comment on above: Order Comment: today Result Comment: No e vidence of lupus anticoagulant. Performed By: #### 1 18081, IGA, LD, FOL, SPE, FERR, IGG, PFA, ANEU, DIMER, FIB, CBC, 475784, RF, 002481, PRO, HIV, 396606, 657804, APTT, FES, RETIC, ADIFF, HCV1, HBSAG, 805522, ANAIFS, 998173, IGM, 228072, HAPTO #### [place] [address] [place] [address] Platelet neutraliz. Negative Normal [facility] Comment on above: Order Comment: today Performed By: #### 1 94755, IGA, LD, FOL, SPE, FERR, IGG, PFA, ANEU, DIMER, FIB, CBC, 107702, RF, 116626, PRO, HIV, 560857, 250110, APTT, FES, RETIC, ADIFF, HCV1, HBSAG, 782941, ANAIFS, 399262, IGM, 546316, HAPTO #### [address] [address] F8AGon 03-02-2024 Von Willebrand Related Antigen 227 % of Normal High 53-167 [facility] Comment on above: Order Comment: today Performed By: #### 1 05045, IGA, LD, FOL, SPE, FERR, IGG, PFA, ANEU, DIMER, FIB, CBC, 083590, RF, 393956, PRO, HIV, 443773, 926176, APTT, FES, RETIC, ADIFF, HCV1, HBSAG, 620533, ANAIFS, 080281, IGM, 042906, HAPTO #### [address] [address] F8on 02-26-2024 Factor VIII 211 % of Normal Normal 76-211 [facility] Comment on above: Order Comment: today Performed By: #### 1 05350, IGA, LD, FOL, SPE, FERR, IGG, PFA, ANEU, DIMER, FIB, CBC, 150806, RF, 520912, PRO, HIV, 927031, 206912, APTT, FES, RETIC, ADIFF, HCV1, HBSAG, 840833, ANAIFS, 841316, IGM, 009810, HAPTO #### [address] [address] [id number] 02-25-2024 B2 Glyco I IgG Ab <9 Normal 0-20 [facility] Comment on above: Order Comment: today Result Comment: The reference interval reflects a 3SD or 99th percentile interval, which is thought to represent a potentially clinically significant result in accordance with the International Consensus Statement on the classification criteria for definitive antiphospholipid syndrome (APS). J Thromb Haem 2006;4:295-306. Performed By: #### 1 05508, IGA, LD, FOL, SPE, FERR, IGG, PFA, ANEU, DIMER, FIB, CBC, 353537, RF, 290746, PRO, HIV, 694932, 328064, APTT, FES, RETIC, ADIFF, HCV1, HBSAG, 090372, ANAIFS, 409832, IGM, 966312, HAPTO #### [place] [address] B2 Glyco I IgM Ab 127 GPI IgM units High 0-32 [facility] Comment on above: Order Comment: today Result Comment: The reference interval reflects a 3SD or 99th percentile interval, which is thought to represent a potentially clinically significant result in accordance with the International Consensus Statement on the classification criteria for definitive antiphospholipid syndrome (APS). J Thromb Haem 2006;4:295-306. Performed At: [facility] [id number] Juana Erickson PhD Ph:[phone] Performed By: #### 1 50283, IGA, LD, FOL, SPE, FERR, IGG, PFA, ANEU, DIMER, FIB, CBC, 681370, RF, 733415, PRO, HIV, 354528, 918199, APTT, FES, RETIC, ADIFF, HCV1, HBSAG, 849805, ANAIFS, 598090, IGM, 471531, HAPTO #### [place] [address] BETAAon 02-25-2024 B2 Glyco I IgA 16 GPI IgA units Normal 0-25 [facility] Comment on above: Order Comment: today Result Comment: The reference interval reflects a 3SD or 99th percentile interval, which is thought to represent a potentially clinically significant result in accordance with the International Consensus Statement on the classification criteria for definitive antiphospholipid syndrome (APS). J Thromb Haem 2006;4:295-306. Performed At: [facility] [address] [id number] Juana Erickson PhD Ph:[phone] Performed By: #### 1 86028, IGA, LD, FOL, SPE, FERR, IGG, PFA, ANEU, DIMER, FIB, CBC, 184586, RF, 660931, PRO, HIV, 575189, 416796, APTT, FES, RETIC, ADIFF, HCV1, HBSAG, 750295, ANAIFS, 218305, IGM, 914046, HAPTO #### [address] [address] EBVPNLon 02-25-2024 EBV Interp Comment Normal [facility] Comment on above: Order Comment: today Result Comment: EBV Interpretation Chart [place]: Antibody Present + Antibody Absent - Interpretation VCA-IgM VCA-IgG EBNA-IgG No previous infection/ - - - Susceptible Primary infection (new + + - or recent) Past Infection +or- + + See comment below* + - - *Results indicate infection with EBV at some time however cannot predict the timing of the infection since antibodies to EBNA usually develop after primary infection or, alternatively, approximately 5-10% of patients with EBV never develop antibodies to EBNA. Performed At: [facility] [id number] Juana Erickson PhD Ph:[phone] Performed By: #### 1 59771, IGA, LD, FOL, SPE, FERR, IGG, PFA, ANEU, DIMER, FIB, CBC, 600218, RF, 644329, PRO, HIV, 223863, 827729, APTT, FES, RETIC, ADIFF, HCV1, HBSAG, 238113, ANAIFS, 347184, IGM, 125279, HAPTO #### [address] [address] EBV Nuc Ag IgG 216.0 units/ml High 0.0-17.9 [facility] Comment on above: Order Comment: today Result Comment: Nega tive <18.0 Equivocal 18.0 - 21.9 Positive >21.9 Performed By: #### 1 80220, IGA, LD, FOL, SPE, FERR, IGG, PFA, ANEU, DIMER, FIB, CBC, 065349, RF, 903455, PRO, HIV, 997533, 859421, APTT, FES, RETIC, ADIFF, HCV1, HBSAG, 551378, ANAIFS, 712842, IGM, 193691, HAPTO #### [place] [address] [place] [address] EBV VCA IgG Ab >600.0 High 0.0-17.9 [facility] Comment on above: Order Comment: today Result Comment: Nega tive <18.0 Equivocal 18.0 - 21.9 Positive >21.9 Performed By: #### 1 93093, IGA, LD, FOL, SPE, FERR, IGG, PFA, ANEU, DIMER, FIB, CBC, 898569, RF, 483381, PRO, HIV, 085957, 468030, APTT, FES, RETIC, ADIFF, HCV1, HBSAG, 612345, ANAIFS, 196083, IGM, 803704, HAPTO #### [place] [id number] EBV VCA IgM Ab <36.0 Normal 0.0-35.9 [facility] Comment on above: Order Comment: today Result Comment: Nega tive <36.0 Equivocal 36.0 - 43.9 Positive >43.9 Performed By: #### 1 08177, IGA, LD, FOL, SPE, FERR, IGG, PFA, ANEU, DIMER, FIB, CBC, 716087, RF, 994089, PRO, HIV, 796720, 293156, APTT, FES, RETIC, ADIFF, HCV1, HBSAG, 162542, ANAIFS, 480531, IGM, 467452, HAPTO #### [place] [id number] [facility] 02-25-2024 Glycoprotein IV Ab Negative Normal Negative [facility] Comment on above: Order Comment: today Result Comment: Perf ormed At: [facility] [address] [id number] Rafi Palmer MD Ph:[phone] Performed By: #### 1 90561, IGA, LD, FOL, SPE, FERR, IGG, PFA, ANEU, DIMER, FIB, CBC, 431631, RF, 842234, PRO, HIV, 410489, 198339, APTT, FES, RETIC, ADIFF, HCV1, HBSAG, 754488, ANAIFS, 489647, IGM, 946573, HAPTO #### [address] [address] HLA Class 1 Ab Negative Normal Negative [facility] Comment on above: Order Comment: today Performed By: #### 1 14479, IGA, LD, FOL, SPE, FERR, IGG, PFA, ANEU, DIMER, FIB, CBC, 041952, RF, 120618, PRO, HIV, 651346, 206870, APTT, FES, RETIC, ADIFF, HCV1, HBSAG, 904295, ANAIFS, 785894, IGM, 020648, HAPTO #### [address] [address] Ia/IIa Ab Negative Normal Negative [facility] Comment on above: Order Comment: today Performed By: #### 1 10921, IGA, LD, FOL, SPE, FERR, IGG, PFA, ANEU, DIMER, FIB, CBC, 759445, RF, 301186, PRO, HIV, 332192, 153565, APTT, FES, RETIC, ADIFF, HCV1, HBSAG, 773837, ANAIFS, 647668, IGM, 037819, HAPTO #### [address] [address] Ib/IX Ab Negative [place] Negative [facility] Comment on above: Order Comment: today Performed By: #### 1 38915, IGA, LD, FOL, SPE, FERR, IGG, PFA, ANEU, DIMER, FIB, CBC, 523361, RF, 651865, PRO, HIV, 535356, 120149, APTT, FES, RETIC, ADIFF, HCV1, HBSAG, 991663, ANAIFS, 073341, IGM, 577415, HAPTO #### [address] [address] IIb/IIIa Ab Negative Normal Negative [facility] Comment on above: Order Comment: today Performed By: #### 1 51700, IGA, LD, FOL, SPE, FERR, IGG, PFA, ANEU, DIMER, FIB, CBC, 856925, RF, 640151, PRO, HIV, 897061, 440595, APTT, FES, RETIC, ADIFF, HCV1, HBSAG, 901346, ANAIFS, 787075, IGM, 395136, HAPTO #### [facility] [address] [place] [address] [facility] 02-25-2024 Rheumatoid Factor 9.4 High <=5.9 [facility] Comment on above: Order Comment: today Result Comment: RF I gM Antibody by Enzyme Immunoassay: Negative < or = 6 Positive > 6 A positive result indicates the presence of RF antibodies and suggests the possibility of rheumatoid arthritis. A negative result indicates no RF IgM antibody or levels below the negative cut-off of the assay. Results of this assay should be used in conjunction with clinical findings and other serological tests. These results were obtained with the [employer] QUANTA Lite RF IgM PAULINO. RF IgM values obtained with different manufacturers' assay methods may not be used interchangeably. The magnitude of the reported IgM levels cannot be correlated to an endpoint titer. Performed By: #### 1 92680, IGA, LD, FOL, SPE, FERR, IGG, PFA, ANEU, DIMER, FIB, CBC, 481121, RF, 029500, PRO, HIV, 393610, 022727, APTT, FES, RETIC, ADIFF, HCV1, HBSAG, 946206, ANAIFS, 451844, IGM, 637982, HAPTO #### [place] [id number] SPEon 02-25-2024 SPE Interpretation Normal [facility] Comment on above: Order Comment: today Result Comment: The beta fraction is increased. Complement, transferrin and beta-lipoproteins are the major beta globulins. This pattern may occur in acute phase reactions, iron deficiency anemia, high estrogen states (e.g., ) or rarely may represent a paraprotein. Electronically Signed by: PEYTON WALSH MD 02/25/2024 13:08 EDT Performed By: #### 1 22474, IGA, LD, FOL, SPE, FERR, IGG, PFA, ANEU, DIMER, FIB, CBC, 853180, RF, 109387, PRO, HIV, 963055, 835933, APTT, FES, RETIC, ADIFF, HCV1, HBSAG, 013689, ANAIFS, 851737, IGM, 281121, HAPTO #### [facility] [address] [place], [place] [address] Albumin 4.1 G/dL Normal 3.3-5.0 [facility] Comment on above: Order Comment: today Performed By: #### 1 70830, IGA, LD, FOL, SPE, FERR, IGG, PFA, ANEU, DIMER, FIB, CBC, 932432, RF, 243213, PRO, HIV, 775586, 078145, APTT, FES, RETIC, ADIFF, HCV1, HBSAG, 964358, ANAIFS, 424978, IGM, 892356, HAPTO #### [place] [address] Alpha 1 0.3 G/dL Normal 0.1-0.4 [facility] Comment on above: Order Comment: today Performed By: #### 1 75716, IGA, LD, FOL, SPE, FERR, IGG, PFA, ANEU, DIMER, FIB, CBC, 252671, RF, 294076, PRO, HIV, 883474, 730034, APTT, FES, RETIC, ADIFF, HCV1, HBSAG, 389534, ANAIFS, 579997, IGM, 172778, HAPTO #### [place] [address] Alpha 2 0.8 G/dL Normal 0.6-1.2 [facility] Comment on above: Order Comment: today Performed By: #### 1 94097, IGA, LD, FOL, SPE, FERR, IGG, PFA, ANEU, DIMER, FIB, CBC, 149038, RF, 730202, PRO, HIV, 226080, 745415, APTT, FES, RETIC, ADIFF, HCV1, HBSAG, 724876, ANAIFS, 614021, IGM, 892057, HAPTO #### [place] [address] Beta 1.6 G/dL High 0.6-1.3 [facility] Comment on above: Order Comment: today Performed By: #### 1 03054, IGA, LD, FOL, SPE, FERR, IGG, PFA, ANEU, DIMER, FIB, CBC, 601025, RF, 842469, PRO, HIV, 722115, 557789, APTT, FES, RETIC, ADIFF, HCV1, HBSAG, 792565, ANAIFS, 835483, IGM, 824186, HAPTO #### [address] [address] Gamma 1.6 G/dL Normal 0.7-1.6 [facility] Comment on above: Order Comment: today Performed By: #### 1 43400, IGA, LD, FOL, SPE, FERR, IGG, PFA, ANEU, DIMER, FIB, CBC, 424723, RF, 926315, PRO, HIV, 924920, 120830, APTT, FES, RETIC, ADIFF, HCV1, HBSAG, 891788, ANAIFS, 600279, IGM, 375474, HAPTO #### [address] [address] ANAIFSon 02-24-2024 Antinuclear Ab Pattern Nuclear fine speckled Normal [facility] Comment on above: Order Comment: today Result Comment: Perf ormed By: [facility] [place] [address] Full Decator Operator: Merlin Pritchard III, M.D. CLIA#: [id number] Performed By: #### 1 73969, IGA, LD, FOL, SPE, FERR, IGG, PFA, ANEU, DIMER, FIB, CBC, 201053, RF, 185896, PRO, HIV, 027612, 827472, APTT, FES, RETIC, ADIFF, HCV1, HBSAG, 003898, ANAIFS, 054640, IGM, 694823, HAPTO #### [address] [address] Antinuclear Ab Screen Positive Abnormal Negative [facility] Comment on above: Order Comment: today Result Comment: Anti -nuclear antibody test is used as an aid in diagnosis of systemic autoimmune diseases. Where positive and clinically warranted, follow-up using disease-specific testing is recommended. Low positive titers are not uncommon with advanced age, certain chronic infections, and malignancies among others. Test methodology: Indirect fluorescence immunoassay (IFA) using HEp-2 cells. Performed By: [facility] [place] [address] Full Decator Operator: Merlin Pritchard III, M.D. CLIA#: [id number] Performed By: #### 1 07771, IGA, LD, FOL, SPE, FERR, IGG, PFA, ANEU, DIMER, FIB, CBC, 793763, RF, 698702, PRO, HIV, 799484, 588225, APTT, FES, RETIC, ADIFF, HCV1, HBSAG, 919428, ANAIFS, 273642, IGM, 212197, HAPTO #### [address] [address] Antinuclear Ab Titer 1:160 Normal [facility] Comment on above: Order Comment: today Result Comment: Perf ormed By: [facility] [address] [place] [address] Full Decator Operator: Merlin Pritchard III, M.D. CLIA#: [id number] Performed By: #### 1 36585, IGA, LD, FOL, SPE, FERR, IGG, PFA, ANEU, DIMER, FIB, CBC, 753070, RF, 230307, PRO, HIV, 553806, 819431, APTT, FES, RETIC, ADIFF, HCV1, HBSAG, 662533, ANAIFS, 313349, IGM, 496283, HAPTO #### [address] 02-24-2024 Cardiolipin IgA <9 Normal 0-11 [facility] Comment on above: Order Comment: today Result Comment: Nega tive: <12 Indeterminate: 12 - 20 Low-Med Positive: >20 - 80 High Positive: >80 Performed At: [facility] [id number] Juana Erickson PhD Ph:[phone] Performed By: #### 1 89324, IGA, LD, FOL, SPE, FERR, IGG, PFA, ANEU, DIMER, FIB, CBC, 426072, RF, 979976, PRO, HIV, 357852, 546939, APTT, FES, RETIC, ADIFF, HCV1, HBSAG, 994691, ANAIFS, 656337, IGM, 839818, HAPTO #### [place] [address] CARDIGon 02-24-2024 Cardiolipin IgG 13 GPL U/mL Normal 0-14 [facility] Comment on above: Order Comment: today Result Comment: Nega tive: <15 Indeterminate: 15 - 20 Low-Med Positive: >20 - 80 High Positive: >80 Performed At: [facility] [address] [place], [place] [id number] Juana Erickson PhD Ph:[phone] Performed By: #### 1 54854, IGA, LD, FOL, SPE, FERR, IGG, PFA, ANEU, DIMER, FIB, CBC, 659998, RF, 273435, PRO, HIV, 993159, 275505, APTT, FES, RETIC, ADIFF, HCV1, HBSAG, 948474, ANAIFS, 206185, IGM, 274083, HAPTO #### [place] [id number] [facility] 02-24-2024 Cardiolipin IgM 14 MPL U/mL High 0-12 [facility] Comment on above: Order Comment: today Result Comment: Nega tive: <13 Indeterminate: 13 - 20 Low-Med Positive: >20 - 80 High Positive: >80 Performed At: [facility] [address] [place], [place] [id number] Juana Erickson PhD Ph:[phone] Performed By: #### 1 58958, IGA, LD, FOL, SPE, FERR, IGG, PFA, ANEU, DIMER, FIB, CBC, 623681, RF, 035494, PRO, HIV, 037738, 546118, APTT, FES, RETIC, ADIFF, HCV1, HBSAG, 189674, ANAIFS, 683501, IGM, 097533, HAPTO #### [place] [address] Final Flow Cytometry Reporto n 02-24-2024 Final Flow Cytometry Report . Pathology Reports Accession: Collected Date/Time: Received Date/Time: Pathologist: [id number] 02/23/2024 13:15 EDT 02/24/2024 05:29 EDT CARLOS JONES MD Final Flow Cytometry Report INTERPRETATION: NO ABNORMAL LYMPHOID OR MYELOID POPULATION SEEN. FLOW CYTOMETRIC ANALYSIS IS NONDIAGNOSTIC. FLOW CYTOMETRY ANALYSIS PHENOTYPE: Phenotype: There is a mixed population of myeloid cells (81% of total) and T and B-cells. B-cells (2% of total) are polytypic and T-cells account for 17%. TEST RESULTS: sKappa B CELLS sLambda B CELLS HLA-DR LEUKOCYTES CD5 T CELLS CD10 LYMPHOCYTES CD11c MONOCYTES CD13 MYELOID CELLS CD14 MONOCYTES CD15 MYELOID CELLS CD19 B-CELLS CD33 MYELOID CELLS CD34 BLAST CELLS CD45 LEUKOCYTES CD64 MYELOID CELLS CD117 MYELOID CELLS CLINICAL DATA: THROMBOCYTOPENIC DISORDER SPECIMEN DESCRIPTION: PERIPHERAL WHOLE BLOOD NA Heparin Tube PATH PROF CPT: 45325 Testing performed by [facility] DISCLAIMER: This test was developed and its performance approved by [facility]. It has not been cleared or approved by the U.S. Food and Drug Administration. The FDA has determined that such clearance or approval is not necessary. This test is used for clinical purposes. It should not be regarded as investigational or for research. This laboratory is certified under the Clinical Laboratory Improvement Amendments of 1998 (CLIA-88) as qualified to perform high complexity clinical laboratory testing. Electronically Signed by Diagnostic interpretation performed at [facility] Sign out Date: 02/24/2024 15:39 Performing Lab: [facility], [address] [place] [address] Pathology Dept Normal [facility] Fr [place] Lt Chains 20.4 mg/L High 3.3-19.4 [facility] Comment on above: Order Comment: today Performed By: #### 1 44440, IGA, LD, FOL, SPE, FERR, IGG, PFA, ANEU, DIMER, FIB, CBC, 186171, RF, 286078, PRO, HIV, 819011, 385093, APTT, FES, RETIC, ADIFF, HCV1, HBSAG, 684259, ANAIFS, 673059, IGM, 657921, HAPTO #### [place] [address] Fr Lambda Lt Chains 28.9 mg/L High 5.7-26.3 [facility] Comment on above: Order Comment: today Performed By: #### 1 10370, IGA, LD, FOL, SPE, FERR, IGG, PFA, ANEU, DIMER, FIB, CBC, 958721, RF, 807054, PRO, HIV, 916802, 745885, APTT, FES, RETIC, ADIFF, HCV1, HBSAG, 206580, ANAIFS, 751982, IGM, 925914, HAPTO #### [address] [address] [place]/Lambda Ratio 0.71 Normal 0.26-1.65 [facility] Comment on above: Order Comment: today Result Comment: Perf ormed At: [facility] [address] [id number] Juana Erickson PhD Ph:[phone] Performed By: #### 1 36812, IGA, LD, FOL, SPE, FERR, IGG, PFA, ANEU, DIMER, FIB, CBC, 162984, RF, 967529, PRO, HIV, 199950, 344586, APTT, FES, RETIC, ADIFF, HCV1, HBSAG, 595220, ANAIFS, 458277, IGM, 325499, HAPTO #### [address] [address] .Auto Diffon 02-23-2024 Basophil, Absolute 0.0 10 3/mcL Normal 0.0-0.3 [facility] Comment on above: Performed By: #### 1 07281, IGA, LD, FOL, SPE, FERR, IGG, PFA, ANEU, DIMER, FIB, CBC, 220901, RF, 393130, PRO, HIV, 946647, 233182, APTT, FES, RETIC, ADIFF, HCV1, HBSAG, 825503, ANAIFS, 906490, IGM, 797494, HAPTO #### [address] [address] Basophils/100 WBC (Bld) 0.4 % Normal 0.0-2.5 [facility] Comment on above: Performed By: #### 1 59958, IGA, LD, FOL, SPE, FERR, IGG, PFA, ANEU, DIMER, FIB, CBC, 490150, RF, 508687, PRO, HIV, 706844, 219297, APTT, FES, RETIC, ADIFF, HCV1, HBSAG, 228023, ANAIFS, 583023, IGM, 504267, HAPTO #### [address] [address] Eosinophil, Absolute 0.3 10 3/mcL Normal 0.0-0.7 [facility] Comment on above: Performed By: #### 1 22616, IGA, LD, FOL, SPE, FERR, IGG, PFA, ANEU, DIMER, FIB, CBC, 893735, RF, 653901, PRO, HIV, 445993, 001903, APTT, FES, RETIC, ADIFF, HCV1, HBSAG, 462704, ANAIFS, 820046, IGM, 348326, HAPTO #### [address] [address] Eosinophils/100 WBC (Bld) 4.6 % Normal 0.0-6.0 [facility] Comment on above: Performed By: #### 1 62296, IGA, LD, FOL, SPE, FERR, IGG, PFA, ANEU, DIMER, FIB, CBC, 381893, RF, 736119, PRO, HIV, 165367, 723945, APTT, FES, RETIC, ADIFF, HCV1, HBSAG, 079350, ANAIFS, 975320, IGM, 163155, HAPTO #### [address] [address] Lymphocyte, Absolute 1.5 10 3/mcL Normal 0.9-4.3 [facility] Comment on above: Performed By: #### 1 99182, IGA, LD, FOL, SPE, FERR, IGG, PFA, ANEU, DIMER, FIB, CBC, 752785, RF, 557904, PRO, HIV, 502361, 890026, APTT, FES, RETIC, ADIFF, HCV1, HBSAG, 343271, ANAIFS, 290053, IGM, 610141, HAPTO #### [address] [address] Lymphocytes/100 WBC (Bld) 20.6 % Normal 20.0-40.0 [facility] Comment on above: Performed By: #### 1 18099, IGA, LD, FOL, SPE, FERR, IGG, PFA, ANEU, DIMER, FIB, CBC, 007587, RF, 222556, PRO, HIV, 247058, 364918, APTT, FES, RETIC, ADIFF, HCV1, HBSAG, 064497, ANAIFS, 121046, IGM, 267877, HAPTO #### [address] [address] Monocyte, Absolute 0.4 10 3/mcL Normal 0.1-1.4 [facility] Comment on above: Performed By: #### 1 78189, IGA, LD, FOL, SPE, FERR, IGG, PFA, ANEU, DIMER, FIB, CBC, 034742, RF, 317451, PRO, HIV, 001828, 485522, APTT, FES, RETIC, ADIFF, HCV1, HBSAG, 911819, ANAIFS, 137106, IGM, 201897, HAPTO #### [address] [address] Monocytes/100 WBC (Bld) 5.6 % Normal 2.0-13.0 [facility] Comment on above: Performed By: #### 1 44376, IGA, LD, FOL, SPE, FERR, IGG, PFA, ANEU, DIMER, FIB, CBC, 056011, RF, 956139, PRO, HIV, 968061, 979262, APTT, FES, RETIC, ADIFF, HCV1, HBSAG, 469475, ANAIFS, 002543, IGM, 529081, HAPTO #### [address] [address] Neutrophils/100 WBC (Bld) 68.8 % Normal 50.0-75.0 [facility] Comment on above: Performed By: #### 1 58234, IGA, LD, FOL, SPE, FERR, IGG, PFA, ANEU, DIMER, FIB, CBC, 935172, RF, 614290, PRO, HIV, 039043, 356012, APTT, FES, RETIC, ADIFF, HCV1, HBSAG, 840765, ANAIFS, 703677, IGM, 214163, HAPTO #### [address] [address] .NEUABSon 02-23-2024 Neutrophil, Absolute 5.0 10 3/mcL Normal 2.3-8.1 [facility] Comment on above: Performed By: #### 1 69976, IGA, LD, FOL, SPE, FERR, IGG, PFA, ANEU, DIMER, FIB, CBC, 836705, RF, 694987, PRO, HIV, 232211, 403789, APTT, FES, RETIC, ADIFF, HCV1, HBSAG, 527807, ANAIFS, 810431, IGM, 831170, HAPTO #### [address] [address] APTTon 02-23-2024 aPTT Coag (Bld) [Time] 33.2 s Normal 25.0-35.0 [facility] MA[facility] Comment on above: Order Comment: today Result Comment: For Heparin anticoagulation therapy, the recommended therapeutic range is: 54-77 seconds (APTT Correlation with Anti-Xa therapeutic range of 0.3-0.7 units/ml). PLEASE REFERENCE THE PHARMACY PROTOCOL FOR DOSING. Performed By: #### 1 93120, IGA, LD, FOL, SPE, FERR, IGG, PFA, ANEU, DIMER, FIB, CBC, 123620, RF, 967971, PRO, HIV, 664520, 039418, APTT, FES, RETIC, ADIFF, HCV1, HBSAG, 176703, ANAIFS, 187301, IGM, 885514, HAPTO #### [address] [address] CBCon 02-23-2024 Erythrocyte distribution width (RBC) [Ratio] 13.1 % Normal 11.5-15.5 [facility] Comment on above: Order Comment: today Performed By: #### 1 32665, IGA, LD, FOL, SPE, FERR, IGG, PFA, ANEU, DIMER, FIB, CBC, 774719, RF, 627174, PRO, HIV, 855594, 546295, APTT, FES, RETIC, ADIFF, HCV1, HBSAG, 677827, ANAIFS, 450268, IGM, 352956, HAPTO #### [address] [address] Hematocrit (Bld) [Volume fraction] 45.2 % Normal 34.0-46.0 [facility] Comment on above: Order Comment: today Performed By: #### 1 48353, IGA, LD, FOL, SPE, FERR, IGG, PFA, ANEU, DIMER, FIB, CBC, 969724, RF, 544974, PRO, HIV, 326123, 992925, APTT, FES, RETIC, ADIFF, HCV1, HBSAG, 561635, ANAIFS, 275236, IGM, 171030, HAPTO #### [address] [address] Hgb 15.0 G/dL Normal 12.0-16.0 [facility] Comment on above: Order Comment: today Performed By: #### 1 05043, IGA, LD, FOL, SPE, FERR, IGG, PFA, ANEU, DIMER, FIB, CBC, 951628, RF, 800484, PRO, HIV, 842393, 305424, APTT, FES, RETIC, ADIFF, HCV1, HBSAG, 201573, ANAIFS, 582474, IGM, 157260, HAPTO #### [place] [address] MCH (RBC) [Entitic mass] 28.8 pg Normal 27.0-33.0 [facility] Comment on above: Order Comment: today Performed By: #### 1 92603, IGA, LD, FOL, SPE, FERR, IGG, PFA, ANEU, DIMER, FIB, CBC, 276090, RF, 064676, PRO, HIV, 264686, 442454, APTT, FES, RETIC, ADIFF, HCV1, HBSAG, 975861, ANAIFS, 798180, IGM, 214720, HAPTO #### [address] [address] MCHC 33.2 G/dL Normal 32.0-36.0 [facility] Comment on above: Order Comment: today Performed By: #### 1 13753, IGA, LD, FOL, SPE, FERR, IGG, PFA, ANEU, DIMER, FIB, CBC, 857312, RF, 834796, PRO, HIV, 180736, 642131, APTT, FES, RETIC, ADIFF, HCV1, HBSAG, 722391, ANAIFS, 244323, IGM, 101829, HAPTO #### [place] [address]248[address] [address] [place] [address] MCV (RBC) [Entitic vol] 86.6 fL Normal 80.0-99.0 [facility] Comment on above: Order Comment: today Performed By: #### 1 49687, IGA, LD, FOL, SPE, FERR, IGG, PFA, ANEU, DIMER, FIB, CBC, 756878, RF, 724716, PRO, HIV, 553360, 534530, APTT, FES, RETIC, ADIFF, HCV1, HBSAG, 899427, ANAIFS, 006294, IGM, 984912, HAPTO #### [place] [address]248[address] [place] [address] Platelet 56 10 3/mcL Low 150-450 [facility] Comment on above: Order Comment: today Performed By: #### 1 60733, IGA, LD, FOL, SPE, FERR, IGG, PFA, ANEU, DIMER, FIB, CBC, 701865, RF, 288759, PRO, HIV, 080094, 645478, APTT, FES, RETIC, ADIFF, HCV1, HBSAG, 904517, ANAIFS, 019008, IGM, 802676, HAPTO #### [address] [address] Platelet mean volume (Bld) [Entitic vol] 10.9 fL High 6.6-10.5 [facility] Comment on above: Order Comment: today Performed By: #### 1 83906, IGA, LD, FOL, SPE, FERR, IGG, PFA, ANEU, DIMER, FIB, CBC, 195431, RF, 645989, PRO, HIV, 365634, 292298, APTT, FES, RETIC, ADIFF, HCV1, HBSAG, 412767, ANAIFS, 284603, IGM, 001514, HAPTO #### [address] [address] RBC 5.22 10 6/mcL Normal 4.10-5.30 [facility] Comment on above: Order Comment: today Performed By: #### 1 98238, IGA, LD, FOL, SPE, FERR, IGG, PFA, ANEU, DIMER, FIB, CBC, 619171, RF, 845738, PRO, HIV, 131145, 326539, APTT, FES, RETIC, ADIFF, HCV1, HBSAG, 961001, ANAIFS, 205017, IGM, 683649, HAPTO #### [facility] [address] [place] [address] WBC 7.3 10 3/mcL Normal 4.5-10.8 [facility] Comment on above: Order Comment: today Performed By: #### 1 51223, IGA, LD, FOL, SPE, FERR, IGG, PFA, ANEU, DIMER, FIB, CBC, 674993, RF, 695579, PRO, HIV, 441526, 366187, APTT, FES, RETIC, ADIFF, HCV1, HBSAG, 596337, ANAIFS, 749027, IGM, 692913, HAPTO #### [place] [id number] DIMERon 02-23-2024 D-Dimer 589 ng/mL D-DU High 0-230 [facility] Comment on above: Order Comment: today Result Comment: Resu lts reported in D-DU ng/mL. Positive for D-dimer. A positive D-Dimer may occur in the following: DVT, PE, DIC, Trauma, Cancer, Sepsis, , Rheumatoid arthritis, Myocardial infarction and Cirrhosis. The presence of Rheumatoid Factor and HAMA (human mouse antibody) produces an overestimation of test results. The result of the D-Dimer test should be evaluated in the context of all the clinical and laboratory data available. In those instances where the laboratory result does not agree with the clinical evaluation, additional tests should be performed accordingly. Performed By: #### 1 38214, IGA, LD, FOL, SPE, FERR, IGG, PFA, ANEU, DIMER, FIB, CBC, 512660, RF, 582357, PRO, HIV, 379920, 416752, APTT, FES, RETIC, ADIFF, HCV1, HBSAG, 877924, ANAIFS, 043218, IGM, 493385, HAPTO #### [address] [address] Jordyn 02-23-2024 Ferritin [Mass/Vol] 67.7 ng/mL Normal 8.0-252.0 [facility] Comment on above: Order Comment: today Performed By: #### 1 91264, IGA, LD, FOL, SPE, FERR, IGG, PFA, ANEU, DIMER, FIB, CBC, 350850, RF, 367842, PRO, HIV, 020173, 061532, APTT, FES, RETIC, ADIFF, HCV1, HBSAG, 986914, ANAIFS, 306069, IGM, 320122, HAPTO #### [address] [address] FESon 02-23-2024 Iron [Mass/Vol] 66 ug/dL Normal 50-170 [facility] Comment on above: Order Comment: today Performed By: #### 1 80012, IGA, LD, FOL, SPE, FERR, IGG, PFA, ANEU, DIMER, FIB, CBC, 192340, RF, 550835, PRO, HIV, 449389, 119213, APTT, FES, RETIC, ADIFF, HCV1, HBSAG, 647562, ANAIFS, 599924, IGM, 533703, HAPTO #### [address] [address] Iron Sat 21 % Normal [facility] Comment on above: Order Comment: today Performed By: #### 1 56587, IGA, LD, FOL, SPE, FERR, IGG, PFA, ANEU, DIMER, FIB, CBC, 035444, RF, 102520, PRO, HIV, 339951, 427390, APTT, FES, RETIC, ADIFF, HCV1, HBSAG, 368910, ANAIFS, 960066, IGM, 556521, HAPTO #### [address] [address] TIBC 317 mcg/dL Normal 250-500 [facility] Comment on above: Order Comment: today Performed By: #### 1 47047, IGA, LD, FOL, SPE, FERR, IGG, PFA, ANEU, DIMER, FIB, CBC, 018321, RF, 403917, PRO, HIV, 727368, 094403, APTT, FES, RETIC, ADIFF, HCV1, HBSAG, 983651, ANAIFS, 968064, IGM, 297555, HAPTO #### [place] [address] [place] [address] FIBon 02-23-2024 Fibrinogen 511 mg/dL Normal 250-560 [facility] Comment on above: Order Comment: today Performed By: #### 1 23297, IGA, LD, FOL, SPE, FERR, IGG, PFA, ANEU, DIMER, FIB, CBC, 212487, RF, 094386, PRO, HIV, 878180, 144979, APTT, FES, RETIC, ADIFF, HCV1, HBSAG, 385015, ANAIFS, 010429, IGM, 489435, HAPTO #### [place] 3481910 FOLon 02-23-2024 Folate >48.00 High 5.38-24.00 [facility] Comment on above: Order Comment: today Performed By: #### 1 41988, IGA, LD, FOL, SPE, FERR, IGG, PFA, ANEU, DIMER, FIB, CBC, 505952, RF, 302531, PRO, HIV, 207973, 603315, APTT, FES, RETIC, ADIFF, HCV1, HBSAG, 921715, ANAIFS, 253594, IGM, 556110, HAPTO #### [place] 3481910 HAPTOon 02-23-2024 Haptoglobin 199 mg/dL Normal 40-280 [facility] Comment on above: Order Comment: today Performed By: #### 1 23600, IGA, LD, FOL, SPE, FERR, IGG, PFA, ANEU, DIMER, FIB, CBC, 595310, RF, 374625, PRO, HIV, 365968, 851184, APTT, FES, RETIC, ADIFF, HCV1, HBSAG, 650151, ANAIFS, 435890, IGM, 105445, HAPTO #### [place] [id number] HBSAGon 02-23-2024 Hep B Surf Ag Non-Reactive Normal Non-Reactive [facility] Comment on above: Order Comment: today Performed By: #### 1 30391, IGA, LD, FOL, SPE, FERR, IGG, PFA, ANEU, DIMER, FIB, CBC, 686035, RF, 903967, PRO, HIV, 698968, 333442, APTT, FES, RETIC, ADIFF, HCV1, HBSAG, 722986, ANAIFS, 272404, IGM, 246579, HAPTO #### [place] [address] HCVon 02-23-2024 Hep C Ab Non-Reactive Normal Non-Reactive [facility] Comment on above: Order Comment: today Performed By: #### 1 72602, IGA, LD, FOL, SPE, FERR, IGG, PFA, ANEU, DIMER, FIB, CBC, 234352, RF, 279518, PRO, HIV, 481240, 988847, APTT, FES, RETIC, ADIFF, HCV1, HBSAG, 541777, ANAIFS, 218166, IGM, 350440, HAPTO #### [place] [address] Hep C Ab Int [facility] Comment on above: Order Comment: today Result Comment: Nonr eactive: Samples with a value < 0.80 are considered nonreactive (negative) for antibodies to HCV. A negative test result does not exclude the possibility of exposure to or infection with HCV. HCV antibodies may be undetectable in some stages of the infection and in some clinical conditions. See Interp Performed By: #### 1 19753, IGA, LD, FOL, SPE, FERR, IGG, PFA, ANEU, DIMER, FIB, CBC, 756669, RF, 534390, PRO, HIV, 236372, 933295, APTT, FES, RETIC, ADIFF, HCV1, HBSAG, 446454, ANAIFS, 987868, IGM, 586255, HAPTO #### [place] [id number] HIVon 02-23-2024 HIV 1/2 Ab Non-Reactive Normal Non-Reactive [facility] Comment on above: Order Comment: today Result Comment: Spec imen is negative for anti-HIV-1 and anti-HIV-2. Performed By: #### 1 25836, IGA, LD, FOL, SPE, FERR, IGG, PFA, ANEU, DIMER, FIB, CBC, 506622, RF, 302986, PRO, HIV, 752930, 416913, APTT, FES, RETIC, ADIFF, HCV1, HBSAG, 372240, ANAIFS, 309179, IGM, 756256, HAPTO #### [place] [id number] [address] [place] [address] IGAon 02-23-2024 IgA [Mass/Vol] 762 mg/dL High 40-350 [facility] Comment on above: Order Comment: today Result Comment: No te - New Reference Range in effect 19 Performed By: #### 1 11516, IGA, LD, FOL, SPE, FERR, IGG, PFA, ANEU, DIMER, FIB, CBC, 599232, RF, 483889, PRO, HIV, 870565, 221572, APTT, FES, RETIC, ADIFF, HCV1, HBSAG, 789426, ANAIFS, 361437, IGM, 492154, HAPTO #### [address] [address] IGGon 02-23-2024 IgG [Mass/Vol] 1452 mg/dL Normal 650-1600 [facility] Comment on above: Order Comment: today Result Comment: No te - New Reference Range in effect 19 Performed By: #### 1 70884, IGA, LD, FOL, SPE, FERR, IGG, PFA, ANEU, DIMER, FIB, CBC, 772056, RF, 221841, PRO, HIV, 499138, 965995, APTT, FES, RETIC, ADIFF, HCV1, HBSAG, 934187, ANAIFS, 946294, IGM, 668974, HAPTO #### [address] [address] IgMon 02-23-2024 IgM [Mass/Vol] 188 mg/dL Normal 50-300 [facility] [facility] Comment on above: Order Comment: today Result Comment: No te - New Reference Range in effect 19 Performed By: #### 1 23765, IGA, LD, FOL, SPE, FERR, IGG, PFA, ANEU, DIMER, FIB, CBC, 453088, RF, 105175, PRO, HIV, 381235, 846397, APTT, FES, RETIC, ADIFF, HCV1, HBSAG, 662794, ANAIFS, 529255, IGM, 878395, HAPTO #### [place] [address] LABORATORYOrdered By: SYSTEM SYSTEM on 02-23-2024 aPTT Coag (Bld) [Time] 33.2 s Normal 25.0 - 35.0 seconds [facility] Comment on above: Interpretive Data: F or Heparin anticoagulation therapy, the recommended therapeutic range is: 54-77 seconds (APTT Correlation with Anti-Xa therapeutic range of 0.3-0.7 units/ml). PLEASE REFERENCE THE PHARMACY PROTOCOL FOR DOSING. Basophils (Bld) [#/Vol] 0.0 103/mcL Normal 0.0 - 0.3 10^3/mcL Workflow SS Basophils/100 WBC (Bld) 0.4 % Normal 0.0 - 2.5 % Workflow SS D-Dimer 589 ng/mL D-DU High 0 - 230 ng/mL D-DU [facility] Comment on above: Result Comment: Resu lts reported in D-DU ng/mL. Positive for D-dimer. A positive D-Dimer may occur in the following: DVT, PE, DIC, Trauma, Cancer, Sepsis, , Rheumatoid arthritis, Myocardial infarction and Cirrhosis. The presence of Rheumatoid Factor and HAMA (human mouse antibody) produces an overestimation of test results. Interpretive Data: T he result of the D-Dimer test should be evaluated in the context of all the clinical and laboratory data available. In those instances where the laboratory result does not agree with the clinical evaluation, additional tests should be performed accordingly. Eosinophils (Bld) [#/Vol] 0.3 103/mcL Normal 0.0 - 0.7 10^3/mcL Workflow SS Eosinophils/100 WBC (Bld) 4.6 % Normal 0.0 - 6.0 % Workflow SS Erythrocyte distribution width (RBC) [Ratio] 13.1 % Normal 11.5 - 15.5 % Workflow SS Ferritin [Mass/Vol] 67.7 ng/mL Normal 8.0 - 25 2.0 ng/mL ADM SS Fibrinogen 511 mg/dL Normal 250 - 560 mg/dL [facility] SS Folate [Mass/Vol] ng/mL High 5.38 - 24. 00 ng/mL [facility] SS Haptoglobin [Mass/Vol] 199 mg/dL Normal 40 - 280 mg/dL [facility] SS Hematocrit (Bld) [Volume fraction] 45.2 % Normal 34.0 - 46.0 % Workflow SS Hemoglobin (Bld) [Mass/Vol] 15.0 G/dL Normal 12.0 - 16.0 G/dL Workflow SS IgA [Mass/Vol] 762 mg/dL High 40 - 350 mg/dL [facility] SS Comment on above: Interpretive Data: * *Note - New Reference Range in effect 19 IgG [Mass/Vol] 1452 mg/dL Normal 650 - 1600 mg/dL [facility] SS Comment on above: Interpretive Data: * *Note - New Reference Range in effect 19 IgM [Mass/Vol] 188 mg/dL Normal 50 - 300 mg/dL ADM SS Comment on above: Interpretive Data: * *Note - New Reference Range in effect 19 Immature reticulocytes/Total reticulocytes (Bld) 0.48 IRF High 0.20 - 0.46 IRF Workflow SS Iron [Mass/Vol] 66 ug/dL Normal 50 - 170 mcg/dL [facility] SS Iron binding capacity [Mass/Vol] 317 mcg/dL Normal 250 - 500 mcg/dL [facility] SS Iron saturation [Mass fraction] 21 % Invalid Interpretation Code [facility] SS LDH Lactate to pyruvate reaction [Catalytic activity/Vol] 216 1 Normal 120 - 246 U/L [facility] SS Lymphocytes (Bld) [#/Vol] 1.5 103/mcL Normal 0.9 - 4.3 10^3/mcL Workflow SS Lymphocytes/100 WBC (Bld) 20.6 % Normal 20.0 - 40.0 % [facility] SS MCH (RBC) [Entitic mass] 28.8 pg Normal 27. 0 - 33.0 pg Workflow SS MCHC 33.2 G/dL Normal 32.0 - 36.0 G/dL [facility] SS MCV (RBC) [Entitic vol] 86.6 fL Normal 80.0 - 99.0 fL Workflow SS Monocytes (Bld) [#/Vol] 0.4 103/mcL Normal 0.1 - 1.4 10^3/mcL Workflow SS Monocytes/100 WBC (Bld) 5.6 % Normal 2.0 - 13.0 % Workflow SS Neutrophils (Bld) [#/Vol] 5.0 103/mcL Normal 2.3 - 8.1 10^3/mcL Workflow SS Neutrophils/100 WBC (Bld) 68.8 % Normal 50.0 - 75.0 % Workflow SS Platelet mean volume (Bld) [Entitic vol] 10.9 fL High 6.6 - 10.5 fL Workflow SS Platelets (Bld) [#/Vol] 56 103/mcL Low 150 - 450 10^3/mcL Workflow SS PT Coag (PPP) [Time] 12.5 s Normal 9.0 - 1 4.4 seconds [facility] SS Comment on above: Interpretive Data: E ffective 12/14/07, Protime results may be affected by some antibiotics (i.e. Ciprofloxacin, Azithromycin, Bactrim) which may potentiate the action of oral anticoagulants, with further increases in Protime/INR. PT International Ratio 1.1 ratio Invalid Interpretation Code [facility] Comment on above: Interpretive Data: Judie johnson [employer] (CHEST, 1992, 102:312S-25S) recommended therapeutic range for oral anticoagulant therapy is: LOW RISK: Prophylaxis of venous thrombosis INR: 2.0-3.0 Treatment of pulmonary embolism 2.0-3.0 Prevention of systemic embolism 2.0-3.0 HIGH RISK: Mechanical prosthetic valves 2.5-3.5 RBC (Bld) [#/Vol] 5.22 106/mcL Normal 4.10 - 5.3 0 10^6/mcL Workflow SS Reticulocytes, Absolute 44.7 103/mcL Normal 8.0 - 108.0 10^3/mcL Workflow SS Reticulocytes, Auto 0.9 % Normal 0.2 - 2.3 % W orkflow SS WBC (Bld) [#/Vol] 7.3 103/mcL Normal 4.5 - 10.8 10^3/mcL Workflow SS LABORATORYOrdered By: Molly Ortiz on 02-23-2024 HBV surface Ag IA Ql Non-Reactive (02/23/24 1:15 PM) Normal Non-Reactive AH ADM SS HCV Ab IA Ql Non-Reactive (02/23/24 1:15 PM) Normal Non-Reactive AH ADM SS HCV Ab IA Ql Nonreactive: Samples with a value < 0.80 are considered nonreactive (negative) for antibodies to HCV.A negative test result does not exclude the possibility of exposure to or infection with HCV. HCV antibodies may be undetectable in some stages of the infection and in some clinical conditions. Invalid Interpretation Code Chemistry S HIV 1+2 Ab IA Ql Negative Invalid Interpretation Code Chemistry S HIV 1/2 Ab Non-Reactive (02/23/24 1:15 PM) Normal Non-Reactive [facility] LABORATORYOrdered By: Azael Quarles on 02-23-2024 Platelet function (closure time) collagen+EPINEPHrine induced (Bld) [Time] 126 s Normal 78 - 174 seconds Manual Coag SS Comment on above: Interpretive Data: * [place]/Epi closure time within or less than the reference range is consistent with normal platelet function. *Prolonged [place]/Epi and a normal [place]/ADP closure time suggest a drug effect; review patient medication history. *Prolongation of both [place]/Epi and [place]/ADP closure time suggest a primary platelet disorder, von Willebrand disease, or thrombocytopenia. Patient history and clinical correlation is essential; effects of medication must be excluded. LABORATORYOrdered By: Celeste Galvan on 02-23-2024 Protein [Mass/Vol] 8.4 G/dL High 5.7 - 8.2 G/dL [facility] Comment on above: Interpretive Data: * *Note - New Reference Range in effect 19 LDHon 02-23-2024 LDH 216 U/L Normal 120-246 [facility] Comment on above: Order Comment: today Performed By: #### 1 57619, IGA, LD, FOL, SPE, FERR, IGG, PFA, ANEU, DIMER, FIB, CBC, 401668, RF, 467023, PRO, HIV, 972545, 069900, APTT, FES, RETIC, ADIFF, HCV1, HBSAG, 415151, ANAIFS, 144811, IGM, 166480, HAPTO #### [facility] [address] [place] [address]274 PFAon 02-23-2024 Collagen/Epinephrine 126 seconds Normal 78-174 [facility] Comment on above: Order Comment: today Result Comment: *Col l/Epi closure time within or less than the reference range is consistent with normal platelet function. *Prolonged [place]/Epi and a normal [place]/ADP closure time suggest a drug effect; review patient medication history. *Prolongation of both [place]/Epi and [place]/ADP closure time suggest a primary platelet disorder, von Willebrand disease, or thrombocytopenia. Patient history and clinical correlation is essential; effects of medication must be excluded. Performed By: #### 1 43333, IGA, LD, FOL, SPE, FERR, IGG, PFA, ANEU, DIMER, FIB, CBC, 997973, RF, 059956, PRO, HIV, 347635, 185379, APTT, FES, RETIC, ADIFF, HCV1, HBSAG, 077769, ANAIFS, 328457, IGM, 120265, HAPTO #### [address] [address] PROon 02-23-2024 INR Coag (PPP) [Relative time] 1.1 {INR} Normal [facility] Comment on above: Order Comment: today Result Comment: [employer] (CHEST, 1992, 102:312S-25S) recommended therapeutic range for oral anticoagulant therapy is: LOW RISK: Prophylaxis of venous thrombosis INR: 2.0-3.0 Treatment of pulmonary embolism 2.0-3.0 Prevention of systemic embolism 2.0-3.0 HIGH RISK: Mechanical prosthetic valves 2.5-3.5 Performed By: #### 1 29631, IGA, LD, FOL, SPE, FERR, IGG, PFA, ANEU, DIMER, FIB, CBC, 161904, RF, 140868, PRO, HIV, 854317, 858216, APTT, FES, RETIC, ADIFF, HCV1, HBSAG, 252390, ANAIFS, 084488, IGM, 936079, HAPTO #### [address] [address] PT Coag (PPP) [Time] 12.5 s Normal 9.0-14.4 [facility] Comment on above: Order Comment: today Result Comment: Effe ctive 12/14/07, Protime results may be affected by some antibiotics (i.e. Ciprofloxacin, Azithromycin, Bactrim) which may potentiate the action of oral anticoagulants, with further increases in Protime/INR. Performed By: #### 1 21567, IGA, LD, FOL, SPE, FERR, IGG, PFA, ANEU, DIMER, FIB, CBC, 372338, RF, 672158, PRO, HIV, 528290, 264596, APTT, FES, RETIC, ADIFF, HCV1, HBSAG, 656559, ANAIFS, 261209, IGM, 344170, HAPTO #### [address] [address] RETICon 02-23-2024 Immature Retic Fraction 0.48 IRF High 0.20-0.46 [facility] Comment on above: Order Comment: today Performed By: #### 1 36626, IGA, LD, FOL, SPE, FERR, IGG, PFA, ANEU, DIMER, FIB, CBC, 724824, RF, 110147, PRO, HIV, 080835, 224792, APTT, FES, RETIC, ADIFF, HCV1, HBSAG, 526041, ANAIFS, 064786, IGM, 806529, HAPTO #### [address] [address] Reticulocytes, Absolute 44.7 10 3/mcL Normal 8.0-108.0 [facility] Comment on above: Order Comment: today Performed By: #### 1 05756, IGA, LD, FOL, SPE, FERR, IGG, PFA, ANEU, DIMER, FIB, CBC, 405475, RF, 619667, PRO, HIV, 943059, 733939, APTT, FES, RETIC, ADIFF, HCV1, HBSAG, 608926, ANAIFS, 150346, IGM, 896560, HAPTO #### [address] [address] Reticulocytes, Auto 0.9 % Normal 0.2-2.3 [facility] Comment on above: Order Comment: today Performed By: #### 1 46484, IGA, LD, FOL, SPE, FERR, IGG, PFA, ANEU, DIMER, FIB, CBC, 617522, RF, 338534, PRO, HIV, 531194, 336983, APTT, FES, RETIC, ADIFF, HCV1, HBSAG, 850555, ANAIFS, 672482, IGM, 597471, HAPTO #### [address] [address] SPEon 02-23-2024 Total Protein 8.4 G/dL High 5.7-8.2 [facility] Comment on above: Order Comment: today Result Comment: No te - New Reference Range in effect 19 Performed By: #### 1 34605, IGA, LD, FOL, SPE, FERR, IGG, PFA, ANEU, DIMER, FIB, CBC, 170736, RF, 911259, PRO, HIV, 126975, 154223, APTT, FES, RETIC, ADIFF, HCV1, HBSAG, 628908, ANAIFS, 703206, IGM, 980684, HAPTO #### [address] [address] CBC + DIFFon 02-18-2024 Baso # 0.02 x10EE3/UL Normal 0.00 - 0.10 [facility] Comment on above: Performed By: #### 2 91980 #### [facility],[address] [place] [address] Basophils/100 WBC (Bld) 0.4 % Normal 0.0 - 2.0 [facility] Comment on above: Performed By: #### 2 98389 #### [facility],[address] [place] [address] CBC + DIFF Normal [facility] Comment on above: Result Comment: CBC- COMPLETE BLOOD COUNT Performed By: #### 2 26853 #### [facility],[address] [place] [address] EO # 0.40 x10EE3/UL Normal 0.00 - 0.50 [facility] Comment on above: Performed By: #### 2 16043 #### [facility],[address] [place] [address] Eosinophils/100 WBC (Bld) 6.3 % Normal 0.0 - 7.0 [facility] Comment on above: Performed By: #### 2 08111 #### [facility],[address] [place] [address] Erythrocyte distribution width (RBC) [Ratio] 13.3 % Normal 12.0 - 15.6 [facility] Comment on above: Performed By: #### 2 53141 #### [facility],[address] [place] [address] Hematocrit (Bld) [Volume fraction] 39.8 % Normal 34.0 - 46.0 [facility] Comment on above: Performed By: #### 2 68279 #### [facility],[address] [place] [address] Hemoglobin (Bld) [Mass/Vol] 13.6 g/dL Normal 12.0 - 16.0 [facility] Comment on above: Performed By: #### 2 83742 #### [facility],[address] [place] [address] Lymph # 1.37 x10EE3/UL Normal 0.80 - 2.80 [facility] Comment on above: Performed By: #### 2 99673 #### [facility],[address] [place], [place] [id number] Lymphocytes/100 WBC (Bld) 21.6 % Normal 20.0 - 45.0 [facility] Comment on above: Performed By: #### 2 38400 #### [facility],[address] [place] [address] MANUAL DIFF N/A Normal [facility] Comment on above: Performed By: #### 2 02183 #### [facility],[address] [place], [place] [id number] MCH (RBC) [Entitic mass] 29 pg Normal 27 - 33 [facility] Comment on above: Performed By: #### 2 50644 #### [facility],[address] [place], [place] [id number] MCHC 34 X10 3 Normal 32 - 36 [facility] Comment on above: Performed By: #### 2 37408 #### [facility],[address] [place] [address]65 MCV (RBC) [Entitic vol] 84 fL Normal 80 - 99 [facility] Comment on above: Performed By: #### 2 40347 #### [facility],[address] [place] [address] [place] # 0.59 x10EE3/UL Normal 0.20 - 1.00 [facility] Comment on above: Performed By: #### 2 96003 #### [facility],[address] [place] [address] MONOS % 9.2 % Normal 0.0 - 10.0 [facility] Comment on above: Performed By: #### 2 36168 #### [facility],[address] [place] [address] Morphology Truong (Bld) [Interp] N/A Normal [facility] Comment on above: Performed By: #### 2 33042 #### [facility],[address] [place] [address] Neut # 3.98 x10EE3/UL Normal 1.50 - 7.10 [facility] Comment on above: Performed By: #### 2 08839 #### [facility],[address] [place] [address]83 Neutrophils/100 WBC (Bld) 62.6 % Normal 46.0 - 76.0 [facility] Comment on above: Performed By: #### 2 07355 #### [facility],[address] [place] [address]8046 PLATELET 48 x10EE3/UL Low 150 - 450 [facility] Comment on above: Performed By: #### 2 51330 #### [facility],[address] [place] [address] Platelet mean volume (Bld) [Entitic vol] 11.2 fL High 6.6 - 10.5 [facility] Comment on above: Result Comment: AUTO MATED DIFFERENTIAL Performed By: #### 2 34791 #### [facility],[address] [place] [address] 99513 RBC 4.71 x 10EE6/UL Normal 4.10 - 5.30 [facility] Comment on above: Performed By: #### 2 14929 #### [facility],[address] [place] [address]67 WBC 6.4 x 10EE3/UL Normal 4.5 - 10.8 [facility] Comment on above: Performed By: #### 2 61771 #### [facility],[address] [place] [address]0582 CMP with eGFRon 02-18-2024 AGE 58 years Normal [facility] Comment on above: Performed By: #### 2 04236 #### [facility],[address] [place] [address] 00682 Albumin [Mass/Vol] 3.5 g/dL Normal 3.4 - 5.0 [facility] Comment on above: Performed By: #### 2 03586 #### [facility],[address] [place] [address] Albumin/Globulin [Mass ratio] 0.8 {ratio} Low 0.9 - 1.6 [facility] Comment on above: Performed By: #### 2 88520 #### [facility],[address] [place] [address]859 ALK PHOS 81 U/L Normal 46 - 116 [facility] Comment on above: Performed By: #### 2 22037 #### [facility],[address] [place] [address] 21898 ALT [Catalytic activity/Vol] 29 U/L Normal 16 - 63 [facility] Comment on above: Performed By: #### 2 91419 #### [facility],[address] [place] [address] 66860 Anion gap [Moles/Vol] 12 mmol/L Normal 10 - 20 [facility] Comment on above: Performed By: #### 2 07007 #### [facility],[address] [place] [address] 24472 AST [Catalytic activity/Vol] 21 U/L Normal 13 - 39 [facility] Comment on above: Performed By: #### 2 97371 #### [facility],[address] [place] [address] 16538 B/C RATIO 9 ratio Normal 0 - 30 [facility] Comment on above: Performed By: #### 2 94478 #### [facility],[address] [place] [address] 23541 Bilirubin [Mass/Vol] 0.5 mg/dL Normal 0.2 - 1.0 [facility] Comment on above: Performed By: #### 2 75813 #### [facility],[address] [place] [address]34 Calcium [Mass/Vol] 9.2 mg/dL Normal 8.5 - 10.1 [facility] Comment on above: Performed By: #### 2 91881 #### [facility],[address] [place] [address] 48033 Chloride [Moles/Vol] 101 mmol/L Normal 98 - 107 [facility] Comment on above: Performed By: #### 2 98136 #### [facility],[address] [place] [address] 37558 CMP with eGFR Normal [facility] Comment on above: Result Comment: COMP REHENSIVE METABOLIC PANEL Performed By: #### 2 35767 #### [facility],[address] [place] [address] 33689 CO2 [Moles/Vol] 30.8 mmol/L Normal 21.0 - 32.0 [facility] Comment on above: Performed By: #### 2 79738 #### [facility],[address] [place] [address] 27095 Creatinine [Mass/Vol] 0.79 mg/dL Normal 0.55 - 1.02 [facility] Comment on above: Performed By: #### 2 06071 #### [facility],[address] [place] [address] 82571 GFR/1.73 sq M.predicted among non-blacks MDRD (S/P/Bld) [Vol rate/Area] mL/min/{1.73_m2} Normal 60 - 999 [facility] Comment on above: Performed By: #### 2 44083 #### [facility],[address] [place] [address] 617[address] Result Comment: ACCO RDING TO THE NATIONAL KIDNEY DISEASE EDUCATION PROGRAM(NKDE), A NORMAL eGFR IS A VALUE GREATER THAN OR EQUAL TO 60 ML/MIN/1.73 SQ METERS. CHRONIC KIDNEY DISEASE: <60mL/MIN/1.73 SQ METERS KIDNEY FAILURE: <15mL/MIN/1.73 SQ METERS THIS TEST SHOULD ONLY BE USED FOR PATIENTS 18 YEARS OF AGE AND OLDER. Globulin (S) [Mass/Vol] 4.4 g/dL High 1.5 - 3.8 [facility] Comment on above: Performed By: #### 2 97177 #### [facility],[address] [place] [address] 33706 Glucose [Mass/Vol] 88 mg/dL Normal 74 - 106 [facility] Comment on above: Performed By: #### 2 80625 #### [facility],[address] [place] [address] 40422 Potassium [Moles/Vol] 3.4 mmol/L Low 3.5 - 5.1 [facility] Comment on above: Performed By: #### 2 13384 #### [facility],[address] [place] [address] 02345 Protein [Mass/Vol] 7.9 g/dL Normal 6.4 - 8.2 [facility] Comment on above: Performed By: #### 2 55761 #### [facility],[address] [place] [address] 43742 Sodium [Moles/Vol] 140 mmol/L Normal 136 - 145 [facility] Comment on above: Performed By: #### 2 11804 #### [facility],[address] [place] [address] 25547 Urea nitrogen [Mass/Vol] 7 mg/dL Normal 7 - 18 [facility] Comment on above: Performed By: #### 2 61597 #### [facility],[address] [place] [address] 16243 LDHon 02-18-2024 LDH 224 U/L Normal 81 - 234 [facility] Comment on above: Performed By: #### 2 12125 #### [facility],[address] [place] [address] 99516 VITAMIN B-12on 02-18-2024 Cobalamin (Vitamin B12) [Mass/Vol] 3505 pg/mL High 193 - 986 [facility] Comment on above: Result Comment: AUTO DILUTION Performed By: #### 2 89699 #### [facility],[address] [place] [address]47[address] CBC + DIFFon 01-21-2024 Baso # 0.02 x10EE3/UL Normal 0.00 - 0.10 [facility] Comment on above: Performed By: #### 2 36855 #### [facility],[address] [place] [address] 16252 Basophils/100 WBC (Bld) 0.4 % Normal 0.0 - 2.0 [facility] Comment on above: Performed By: #### 2 50270 #### [facility],[address] [place] [address] 72062 CBC + DIFF Normal [facility] Comment on above: Result Comment: CBC- COMPLETE BLOOD COUNT Performed By: #### 2 64081 #### [facility],[address] [place] [address] 91483 EO # 0.21 x10EE3/UL Normal 0.00 - 0.50 [facility] Comment on above: Performed By: #### 2 94509 #### [facility],[address] [place] [address] 66339 Eosinophils/100 WBC (Bld) 3.3 % Normal 0.0 - 7.0 [facility] Comment on above: Performed By: #### 2 50701 #### [facility],[address] [place] [address] Erythrocyte distribution width (RBC) [Ratio] 13.6 % Normal 12.0 - 15.6 [facility] Comment on above: Performed By: #### 2 76419 #### [facility],[address] [place] [address] Hematocrit (Bld) [Volume fraction] 43.7 % Normal 34.0 - 46.0 [facility] Comment on above: Performed By: #### 2 88914 #### [place] [address] Hemoglobin (Bld) [Mass/Vol] 14.7 g/dL Normal 12.0 - 16.0 [facility] Comment on above: Performed By: #### 2 77464 #### [facility],[address] [place] [address] 26713 Lymph # 1.63 x10EE3/UL Normal 0.80 - 2.80 [facility] Comment on above: Performed By: #### 2 18033 #### [facility],[address] [place] [address] 79114 Lymphocytes/100 WBC (Bld) 26.2 % Normal 20.0 - 45.0 [facility] Comment on above: Performed By: #### 2 98883 #### [facility],[address] [place] [address] 30062 MANUAL DIFF N/A Normal [facility] Comment on above: Performed By: #### 2 24855 #### [facility],[address] [place] [address] 94684 MCH (RBC) [Entitic mass] 29 pg Normal 27 - 33 [facility] Comment on above: Performed By: #### 2 18501 #### [facility],[address] [place] [address] 84896 MCHC 34 X10 3 Normal 32 - 36 [facility] Comment on above: Performed By: #### 2 34849 #### [facility],[address] [place] [address] 34908 MCV (RBC) [Entitic vol] 86 fL Normal 80 - 99 [facility] Comment on above: Performed By: #### 2 38607 #### [facility],[address] [place] [address] [place] # 0.42 x10EE3/UL Normal 0.20 - 1.00 [facility] Comment on above: Performed By: #### 2 04409 #### [facility],[address] [place] [address] 87547 MONOS % 6.8 % Normal 0.0 - 10.0 [facility] Comment on above: Performed By: #### 2 82888 #### [facility],[address] [place] [address] 10179 Morphology Truong (Bld) [Interp] SEE BELOW Normal [facility] Comment on above: Performed By: #### 2 36151 #### [facility],[address] [place] [address] 53430 Neut # 3.93 x10EE3/UL Normal 1.50 - 7.10 [facility] Comment on above: Performed By: #### 2 94452 #### [facility],[address] [place] [address] 00107 Neutrophils/100 WBC (Bld) 63.3 % Normal 46.0 - 76.0 [facility] Comment on above: Performed By: #### 2 34242 #### [facility],[address] [place] [address] 44408 PLATELET 34 x10EE3/UL Low 150 - 450 [facility] Comment on above: Performed By: #### 2 68221 #### [facility],[address] [place] [address] 65927 Platelet mean volume (Bld) [Entitic vol] 12.4 fL High 6.6 - 10.5 [facility] Comment on above: Result Comment: AUTO MATED DIFFERENTIAL Performed By: #### 2 76118 #### [facility],[address] [place] [address] 84921 PLT EST DECREASED Normal [facility] Comment on above: Performed By: #### 2 87334 #### [facility],[address] [place] [address] 35044 RBC 5.10 x 10EE6/UL Normal 4.10 - 5.30 [facility] Comment on above: Performed By: #### 2 46714 #### [facility],[address] [place] [address] 25874 WBC 6.2 x 10EE3/UL Normal 4.5 - 10.8 [facility] Comment on above: Performed By: #### 2 26170 #### [facility],[address] [place] [address] 15480 CMP with eGFRon 01-21-2024 AGE 58 years Normal [facility] Comment on above: Performed By: #### 2 79188 #### [facility],[address] [place] [address] 76273 Albumin [Mass/Vol] 3.6 g/dL Normal 3.4 - 5.0 [facility] Comment on above: Performed By: #### 2 37121 #### [facility],[address] [place] [address] 36805 Albumin/Globulin [Mass ratio] 0.8 {ratio} Low 0.9 - 1.6 [facility] Comment on above: Performed By: #### 2 89848 #### [facility],[address] [place] [address] 12665 ALK PHOS 91 U/L Normal 46 - 116 [facility] Comment on above: Performed By: #### 2 08981 #### [facility],[address] [place] [address] 38114 ALT [Catalytic activity/Vol] 28 U/L Normal 16 - 63 [facility] Comment on above: Performed By: #### 2 52037 #### [facility],[address] [place] [address] 15679 Anion gap [Moles/Vol] 13 mmol/L Normal 10 - 20 [facility] Comment on above: Performed By: #### 2 13035 #### [facility],[address] [place] [address] 60378 AST [Catalytic activity/Vol] 23 U/L Normal 13 - 39 [facility] Comment on above: Performed By: #### 2 32735 #### [facility],[address] [place] [address] 79095 B/C RATIO 15 ratio Normal 0 - 30 [facility] Comment on above: Performed By: #### 2 50508 #### [facility],[address] [place] [address] 40381 Bilirubin [Mass/Vol] 0.5 mg/dL Normal 0.2 - 1.0 [facility] Comment on above: Performed By: #### 2 12434 #### [facility],[address] [place] [address] 31667 Calcium [Mass/Vol] 9.7 mg/dL Normal 8.5 - 10.1 [facility] Comment on above: Performed By: #### 2 88885 #### [facility],[address] [place] [address] 25564 Chloride [Moles/Vol] 99 mmol/L Normal 98 - 107 [facility] Comment on above: Performed By: #### 2 12703 #### [facility],[address] [place] [address] 58160 CMP with eGFR Normal [facility] Comment on above: Result Comment: COMP REHENSIVE METABOLIC PANEL Performed By: #### 2 89400 #### [facility],[address] [place] [address] 46884 CO2 [Moles/Vol] 28.9 mmol/L Normal 21.0 - 32.0 [facility] Comment on above: Performed By: #### 2 36632 #### [facility],[address] [place] [address] 24077 Creatinine [Mass/Vol] 0.62 mg/dL Normal 0.55 - 1.02 [facility] Comment on above: Performed By: #### 2 07627 #### [facility],[address] [place] [address] 71661 GFR/1.73 sq M.predicted among non-blacks MDRD (S/P/Bld) [Vol rate/Area] mL/min/{1.73_m2} Normal 60 - 999 [facility] Comment on above: Performed By: #### 2 95531 #### [facility],[address] [place] [address] 67719 Result Comment: ACCO RDING TO THE NATIONAL KIDNEY DISEASE EDUCATION PROGRAM(NKDE), A NORMAL eGFR IS A VALUE GREATER THAN OR EQUAL TO 60 ML/MIN/1.73 SQ METERS. CHRONIC KIDNEY DISEASE: <60mL/MIN/1.73 SQ METERS KIDNEY FAILURE: <15mL/MIN/1.73 SQ METERS THIS TEST SHOULD ONLY BE USED FOR PATIENTS 18 YEARS OF AGE AND OLDER. Globulin (S) [Mass/Vol] 4.8 g/dL High 1.5 - 3.8 [facility] Comment on above: Performed By: #### 2 97882 #### [facility],[address] [place] [address] 35656 Glucose [Mass/Vol] 99 mg/dL Normal 74 - 106 [facility] Comment on above: Performed By: #### 2 76080 #### [facility],[address] [place] [address] 56857 Potassium [Moles/Vol] 3.6 mmol/L Normal 3.5 - 5.1 [facility] Comment on above: Performed By: #### 2 59174 #### [facility],[address] [place] [address] 17056 Protein [Mass/Vol] 8.4 g/dL High 6.4 - 8.2 [facility] Comment on above: Performed By: #### 2 86707 #### [facility],[address] [place] [address] Sodium [Moles/Vol] 137 mmol/L Normal 136 - 145 [facility] Comment on above: Performed By: #### 2 89646 #### [facility],[address] [place] [address] Urea nitrogen [Mass/Vol] 9 mg/dL Normal 7 - 18 [facility] Comment on above: Performed By: #### 2 66148 #### [facility],[address] [place] [address] LDHon 01-21-2024 LDH 229 U/L Normal 81 - 234 [facility] Comment on above: Performed By: #### 2 21577 #### [facility],[address] [place] [address] CBC + DIFFon 11-10-2023 Baso # 0.02 x10EE3/UL Normal 0.00 - 0.10 [facility] Comment on above: Performed By: #### 2 45836 #### [facility],[address] [place], [place] [id number] Basophils/100 WBC (Bld) 0.4 % Normal 0.0 - 2.0 [facility] Comment on above: Performed By: #### 2 17274 #### [facility],[address] [place], [place] [id number] CBC + DIFF Normal [facility] Comment on above: Result Comment: CBC- COMPLETE BLOOD COUNT Performed By: #### 2 12192 #### [facility],[address] [place], [place] [id number] EO # 0.17 x10EE3/UL Normal 0.00 - 0.50 [facility] Comment on above: Performed By: #### 2 30317 #### [facility],[address] [place] [address] Eosinophils/100 WBC (Bld) 3.1 % Normal 0.0 - 7.0 [facility] Comment on above: Performed By: #### 2 97530 #### [facility],[address] [place] [address] Erythrocyte distribution width (RBC) [Ratio] 13.4 % Normal 12.0 - 15.6 [facility] Comment on above: Performed By: #### 2 65942 #### [facility],[address] [place] [address] Hematocrit (Bld) [Volume fraction] 45.4 % Normal 34.0 - 46.0 [facility] Comment on above: Performed By: #### 2 62225 #### [facility],[address] [place] [address] Hemoglobin (Bld) [Mass/Vol] 14.9 g/dL Normal 12.0 - 16.0 [facility] Comment on above: Performed By: #### 2 73830 #### [facility],[address] [place] [address] 94124 Lymph # 1.40 x10EE3/UL Normal 0.80 - 2.80 [facility] Comment on above: Performed By: #### 2 45585 #### [facility],[address] [place], [place] [id number] Lymphocytes/100 WBC (Bld) 25.5 % Normal 20.0 - 45.0 [facility] Comment on above: Performed By: #### 2 30348 #### [facility],[address] [place] [address] MANUAL DIFF N/A Normal [facility] Comment on above: Performed By: #### 2 97419 #### [facility],[address] [place] [address] MCH (RBC) [Entitic mass] 28 pg Normal 27 - 33 [facility] Comment on above: Performed By: #### 2 73513 #### [facility],[address] [place] [address] MCHC 33 X10 3 Normal 32 - 36 [facility] Comment on above: Performed By: #### 2 25923 #### [facility],[address] [place] [address] MCV (RBC) [Entitic vol] 87 fL Normal 80 - 99 [facility] Comment on above: Performed By: #### 2 29312 #### [facility],[address] [place] [address] [place] # 0.29 x10EE3/UL Normal 0.20 - 1.00 [facility] Comment on above: Performed By: #### 2 33526 #### [facility],[address] [place] [address] MONOS % 5.2 % Normal 0.0 - 10.0 [facility] Comment on above: Performed By: #### 2 20960 #### [facility],[address] [place], [place] [id number] Morphology [place] (Bld) [Interp] REVIEWED Normal [facility] Comment on above: Performed By: #### 2 77038 #### [facility],[address] [place] [address] Neut # 3.62 x10EE3/UL Normal 1.50 - 7.10 [facility] Comment on above: Performed By: #### 2 84571 #### [facility],[address] [place] [address] Neutrophils/100 WBC (Bld) 65.9 % Normal 46.0 - 76.0 [facility] Comment on above: Performed By: #### 2 63389 #### [facility],[address] [place] [address] 19619 PLATELET 42 x10EE3/UL Low 150 - 450 [facility] Comment on above: Performed By: #### 2 57829 #### [facility],[address] [place] [address] 81187 Platelet mean volume (Bld) [Entitic vol] 11.0 fL High 6.6 - 10.5 [facility] Comment on above: Result Comment: AUTO MATED DIFFERENTIAL Performed By: #### 2 19319 #### [facility],[address] [place] [address] 89869 RBC 5.25 x 10EE6/UL Normal 4.10 - 5.30 [facility] Comment on above: Performed By: #### 2 74577 #### [facility],[address] [place] [address] 64757 WBC 5.5 x 10EE3/UL Normal 4.5 - 10.8 [facility] Comment on above: Performed By: #### 2 48651 #### [facility],[address] [place] [address] 19379 CMP with eGFRon 11-10-2023 AGE 58 years Normal [facility] Comment on above: Performed By: #### 2 63534 #### [facility],[address] [place] [address] 81704 Albumin [Mass/Vol] 3.5 g/dL Normal 3.4 - 5.0 [facility] Comment on above: Performed By: #### 2 19183 #### [facility],[address] [place] [address] 31855 Albumin/Globulin [Mass ratio] 0.7 {ratio} Low 0.9 - 1.6 [facility] Comment on above: Performed By: #### 2 70686 #### [facility],[address] [place] [address] 05157 ALK PHOS 90 U/L Normal 46 - 116 [facility] Comment on above: Performed By: #### 2 56310 #### [facility],[address] [place] [address] 23427 ALT [Catalytic activity/Vol] 30 U/L Normal 16 - 63 [facility] Comment on above: Performed By: #### 2 84962 #### [facility],[address] [place] [address] 39410 Anion gap [Moles/Vol] 10 mmol/L Normal 10 - 20 [facility] Comment on above: Performed By: #### 2 67355 #### [facility],[address] [place] [address] 62644 AST [Catalytic activity/Vol] 23 U/L Normal 13 - 39 [facility] Comment on above: Performed By: #### 2 49661 #### [facility],[address] [place] [address] 81960 B/C RATIO 20 ratio Normal 0 - 30 [facility] Comment on above: Performed By: #### 2 88666 #### [facility],[address] [place] [address] 20955 Bilirubin [Mass/Vol] 0.5 mg/dL Normal 0.2 - 1.0 [facility] Comment on above: Performed By: #### 2 63453 #### [facility],[address] [place] [address] 73275 Calcium [Mass/Vol] 9.2 mg/dL Normal 8.5 - 10.1 [facility] Comment on above: Performed By: #### 2 77336 #### [facility],[address] [place] [address] 97128 Chloride [Moles/Vol] 98 mmol/L Normal 98 - 107 [facility] Comment on above: Performed By: #### 2 72126 #### [facility],[address] [place] [address] 30240 CMP with eGFR Normal [facility] Comment on above: Result Comment: COMP REHENSIVE METABOLIC PANEL Performed By: #### 2 99116 #### [facility],[address] [place] [address] 97510 CO2 [Moles/Vol] 28.8 mmol/L Normal 21.0 - 32.0 [facility] Comment on above: Performed By: #### 2 13069 #### [facility],[address] [place] [address] 44301 Creatinine [Mass/Vol] 0.61 mg/dL Normal 0.55 - 1.02 [facility] Comment on above: Performed By: #### 2 26820 #### [facility],[address] [place] [address] 60499 GFR/1.73 sq M.predicted among non-blacks MDRD (S/P/Bld) [Vol rate/Area] mL/min/{1.73_m2} Normal 60 - 999 [facility] Comment on above: Performed By: #### 2 86213 #### [facility],[address] [place] [address] 62371 Result Comment: ACCO RDING TO THE NATIONAL KIDNEY DISEASE EDUCATION PROGRAM(NKDE), A NORMAL eGFR IS A VALUE GREATER THAN OR EQUAL TO 60 ML/MIN/1.73 SQ METERS. CHRONIC KIDNEY DISEASE: <60mL/MIN/1.73 SQ METERS KIDNEY FAILURE: <15mL/MIN/1.73 SQ METERS THIS TEST SHOULD ONLY BE USED FOR PATIENTS 18 YEARS OF AGE AND OLDER. Globulin (S) [Mass/Vol] 4.8 g/dL High 1.5 - 3.8 [facility] Comment on above: Performed By: #### 2 91066 #### [facility],[address] [place] [address] 13018 Glucose [Mass/Vol] 126 mg/dL High 74 - 106 [facility] Comment on above: Performed By: #### 2 92160 #### [facility],[address] [place] [address] 01411 Potassium [Moles/Vol] 3.5 mmol/L Normal 3.5 - 5.1 [facility] Comment on above: Performed By: #### 2 95055 #### [facility],[address] [place] [address] 92867 Protein [Mass/Vol] 8.3 g/dL High 6.4 - 8.2 [facility] Comment on above: Performed By: #### 2 50170 #### [facility],[address] [place], [place] [address] Sodium [Moles/Vol] 133 mmol/L Low 136 - 145 [facility] Comment on above: Performed By: #### 2 85865 #### [facility],[address] [place], [place] [address] Urea nitrogen [Mass/Vol] 12 mg/dL Normal 7 - 18 [facility] Comment on above: Performed By: #### 2 15682 #### [facility],[address] [place], [place] [id number] LDHon 11-10-2023 LDH 202 U/L Normal 81 - 234 [facility] Comment on above: Performed By: #### 2 27155 #### [facility],[address] [place], [place] [id number] LABORATORYOrdered By: SYSTEM SYSTEM on 11-03-2022 Albumin BCP dye [Mass/Vol] 3.9 G/dL Invalid Interpretation Code 3.2 - 4.8 G/dL ADM SS Albumin/Globulin [Mass ratio] 0.9 {ratio} Invalid Interpretation Code 0.9 - 1.6 ratio ADM SS ALP [Catalytic activity/Vol] 93 U/L Invalid Interpretation Code 38 - 126 U/L ADM SS ALT No additional P-5'-P [Catalytic activity/Vol] 34 U/L Invalid Interpretation Code 10 - 49 U/L ADM SS AST [Catalytic activity/Vol] 29 U/L Invalid Interpretation Code 8 - 34 U/L ADM SS Basophils (Bld) [#/Vol] 0.1 103/mcL Invalid Interpretation Code 0.0 - 0.3 10^3/mcL Workflow SS Basophils/100 WBC (Bld) 0.8 % Invalid Interpretation Code 0.0 - 2.5 % AH Workflow SS Bilirubin [Mass/Vol] 0.40 mg/dL Invalid Interpretation Code 0.20 - 1.20 mg/dL ADM SS Calcium [Mass/Vol] 9.8 mg/dL Invalid Interpretation Code 8.7 - 10.4 mg/dL ADM SS Chloride [Moles/Vol] 102 mmol/L Invalid Interpretation Code 98 - 110 mEq/L ADM SS CO2 [Moles/Vol] 31 mmol/L Invalid Interpretation Code 22 - 32 mEq/L ADM SS Creatinine [Mass/Vol] 0.55 mg/dL Invalid Interpretation Code 0.50 - 1.20 mg/dL ADM SS Electrolyte Balance 3.0 mEq/L Invalid Interpretation Code 4.0 - 15.0 mEq/L ADM SS Eosinophils (Bld) [#/Vol] 0.1 103/mcL Invalid Interpretation Code 0.0 - 0.7 10^3/mcL Workflow SS Eosinophils/100 WBC (Bld) 1.0 % Invalid Interpretation Code 0.0 - 6.0 % Workflow SS Erythrocyte distribution width (RBC) [Ratio] 12.2 % Invalid Interpretation Code 11.5 - 15.5 % Workflow SS GFR/1.73 sq M.predicted among blacks MDRD (S/P/Bld) [Vol rate/Area] ml/min/1.73sqm Invalid Interpretation Code ADM SS GFR/1.73 sq M.predicted among non-blacks MDRD (S/P/Bld) [Vol rate/Area] ml/min/1.73sqm Invalid Interpretation Code ADM SS Globulin 4.5 G/dL Invalid Interpretation Code 1.5 - 3.8 G/dL ADM SS Glucose [Mass/Vol] 95 mg/dL Invalid Interpretation Code 70 - 110 mg/dL ADM SS Hematocrit (Bld) [Volume fraction] 43.4 % Invalid Interpretation Code 34.0 - 46.0 % Workflow SS Hemoglobin (Bld) [Mass/Vol] 14.5 G/dL Invalid Interpretation Code 12.0 - 16.0 G/dL Workflow SS Lymphocytes (Bld) [#/Vol] 1.5 103/mcL Invalid Interpretation Code 0.9 - 4.3 10^3/mcL Workflow SS Lymphocytes/100 WBC (Bld) 20.2 % Invalid Interpretation Code 20.0 - 40.0 % AH Workflow SS MCH (RBC) [Entitic mass] 29.8 pg Invalid Interpretation Code 27.0 - 33.0 pg AH Workflow SS MCHC 33.5 G/dL Invalid Interpretation Code 32.0 - 36.0 G/dL AH Workflow SS MCV (RBC) [Entitic vol] 89.1 fL Invalid Interpretation Code 80.0 - 99.0 fL AH Workflow SS Monocytes (Bld) [#/Vol] 0.6 103/mcL Invalid Interpretation Code 0.1 - 1.4 10^3/mcL AH Workflow SS Monocytes/100 WBC (Bld) 7.9 % Invalid Interpretation Code 2.0 - 13.0 % AH Workflow SS Neutrophils (Bld) [#/Vol] 5.1 103/mcL Invalid Interpretation Code 2.3 - 8.1 10^3/mcL AH Workflow SS Neutrophils/100 WBC (Bld) 70.1 % Invalid Interpretation Code 50.0 - 75.0 % AH Workflow SS Platelet mean volume (Bld) [Entitic vol] 10.5 fL Invalid Interpretation Code 6.6 - 10.5 fL AH Workflow SS Platelets (Bld) [#/Vol] 68 103/mcL Invalid Interpretation Code 150 - 450 10^3/mcL AH Workflow SS Potassium [Moles/Vol] 4.1 mmol/L Invalid Interpretation Code 3.5 - 5.0 mEq/L ADM SS Comment on above: Result Comment: Spec imen slightly hemolyzed. Protein [Mass/Vol] 8.4 G/dL Invalid Interpretation Code 5.7 - 8.2 G/dL ADM SS RBC (Bld) [#/Vol] 4.87 106/mcL Invalid Interpretation Code 4.10 - 5.30 10^6/mcL AH Workflow SS Sodium [Moles/Vol] 136 mmol/L Invalid Interpretation Code 136 - 145 mEq/L ADM SS Urea nitrogen [Mass/Vol] 10.0 mg/dL Invalid Interpretation Code 8.0 - 22.0 mg/dL ADM SS Urea nitrogen/Creatinine [Mass ratio] 18.2 ratio Invalid Interpretation Code 10.0 - 22.0 ratio AH ADM SS WBC (Bld) [#/Vol] 7.3 103/mcL Invalid Interpretation Code 4.5 - 10.8 10^3/mcL AH Workflow SS LABORATORYOrdered By: Molly Ortiz on 11-03-2022 aPTT Coag (PPP) [Time] 32.0 s Invalid Interpretation Code 25.0 - 35.0 seconds Auto Coag SS Heparin dose (APTT) None Invalid Interpretation Code Auto Coag SS INR Coag (PPP) [Relative time] 1.1 {INR} Invalid Interpretation Code Auto Coag SS PT Coag (PPP) [Time] 12.5 s Invalid Interpretation Code 9.0 - 14.8 seconds Auto Coag SS LABORATORYOrdered By: SYSTEM SYSTEM on 03-25-2022 Albumin BCP dye [Mass/Vol] 3.5 G/dL Invalid Interpretation Code 3.2 - 4.8 G/dL ADM SS Albumin/Globulin [Mass ratio] 0.9 {ratio} Invalid Interpretation Code 0.9 - 1.6 ratio ADM SS ALP [Catalytic activity/Vol] 222 U/L Invalid Interpretation Code 38 - 126 U/L ADM SS ALT No additional P-5'-P [Catalytic activity/Vol] 581 U/L Invalid Interpretation Code 10 - 49 U/L ADM SS AST [Catalytic activity/Vol] 251 U/L Invalid Interpretation Code 8 - 34 U/L ADM SS Basophils (Bld) [#/Vol] 0.1 103/mcL Invalid Interpretation Code 0.0 - 0.3 10^3/mcL Workflow SS Basophils/100 WBC (Bld) 1.0 % Invalid Interpretation Code 0.0 - 2.5 % Workflow SS Bilirubin [Mass/Vol] 0.90 mg/dL Invalid Interpretation Code 0.20 - 1.20 mg/dL ADM SS Calcium [Mass/Vol] 9.3 mg/dL Invalid Interpretation Code 8.7 - 10.4 mg/dL ADM SS Chloride [Moles/Vol] 102 mmol/L Invalid Interpretation Code 98 - 110 mEq/L ADM SS CO2 [Moles/Vol] 30 mmol/L Invalid Interpretation Code 22 - 32 mEq/L ADM SS Creatinine [Mass/Vol] 0.73 mg/dL Invalid Interpretation Code 0.50 - 1.20 mg/dL ADM SS Electrolyte Balance 5.0 mEq/L Invalid Interpretation Code 4.0 - 15.0 mEq/L ADM SS Eosinophils (Bld) [#/Vol] 0.1 103/mcL Invalid Interpretation Code 0.0 - 0.7 10^3/mcL Workflow SS Eosinophils/100 WBC (Bld) 1.8 % Invalid Interpretation Code 0.0 - 6.0 % AH Workflow SS Erythrocyte distribution width (RBC) [Ratio] 15.0 % Invalid Interpretation Code 11.5 - 15.5 % AH Workflow SS GFR/1.73 sq M.predicted among blacks MDRD (S/P/Bld) [Vol rate/Area] ml/min/1.73sqm Invalid Interpretation Code Chemistry S GFR/1.73 sq M.predicted among non-blacks MDRD (S/P/Bld) [Vol rate/Area] ml/min/1.73sqm Invalid Interpretation Code Chemistry S Globulin 3.9 G/dL Invalid Interpretation Code 1.5 - 3.8 G/dL ADM SS Glucose [Mass/Vol] 101 mg/dL Invalid Interpretation Code 70 - 110 mg/dL ADM SS Hematocrit (Bld) [Volume fraction] 42.9 % Invalid Interpretation Code 34.0 - 46.0 % AH Workflow SS Hemoglobin (Bld) [Mass/Vol] 14.3 G/dL Invalid Interpretation Code 12.0 - 16.0 G/dL AH Workflow SS Lymphocytes (Bld) [#/Vol] 1.4 103/mcL Invalid Interpretation Code 0.9 - 4.3 10^3/mcL AH Workflow SS Lymphocytes/100 WBC (Bld) 22.9 % Invalid Interpretation Code 20.0 - 40.0 % AH Workflow SS MCH (RBC) [Entitic mass] 29.1 pg Invalid Interpretation Code 27.0 - 33.0 pg AH Workflow SS MCHC 33.2 G/dL Invalid Interpretation Code 32.0 - 36.0 G/dL AH Workflow SS MCV (RBC) [Entitic vol] 87.6 fL Invalid Interpretation Code 80.0 - 99.0 fL AH Workflow SS Monocytes (Bld) [#/Vol] 0.6 103/mcL Invalid Interpretation Code 0.1 - 1.4 10^3/mcL AH Workflow SS Monocytes/100 WBC (Bld) 10.1 % Invalid Interpretation Code 2.0 - 13.0 % AH Workflow SS Neutrophils (Bld) [#/Vol] 4.0 103/mcL Invalid Interpretation Code 2.3 - 8.1 10^3/mcL AH Workflow SS Neutrophils/100 WBC (Bld) 64.2 % Invalid Interpretation Code 50.0 - 75.0 % AH Workflow SS Platelet mean volume (Bld) [Entitic vol] 11.0 fL Invalid Interpretation Code 6.6 - 10.5 fL AH Workflow SS Platelets (Bld) [#/Vol] 75 103/mcL Invalid Interpretation Code 150 - 450 10^3/mcL AH Workflow SS Potassium [Moles/Vol] 4.0 mmol/L Invalid Interpretation Code 3.5 - 5.0 mEq/L AH ADM SS Comment on above: Result Comment: Spec imen slightly hemolyzed. Protein [Mass/Vol] 7.4 G/dL Invalid Interpretation Code 5.7 - 8.2 G/dL AH ADM SS RBC (Bld) [#/Vol] 4.90 106/mcL Invalid Interpretation Code 4.10 - 5.30 10^6/mcL AH Workflow SS Sodium [Moles/Vol] 137 mmol/L Invalid Interpretation Code 136 - 145 mEq/L ADM SS Urea nitrogen [Mass/Vol] 12.0 mg/dL Invalid Interpretation Code 8.0 - 22.0 mg/dL ADM SS Urea nitrogen/Creatinine [Mass ratio] 16.4 ratio Invalid Interpretation Code 10.0 - 22.0 ratio AH ADM SS WBC (Bld) [#/Vol] 6.3 103/mcL Invalid Interpretation Code 4.5 - 10.8 10^3/mcL Workflow SS LABORATORYOrdered By: SYSTEM SYSTEM on 03-18-2022 Albumin BCP dye [Mass/Vol] 3.7 G/dL Invalid Interpretation Code 3.2 - 4.8 G/dL ADM SS Albumin/Globulin [Mass ratio] 0.9 {ratio} Invalid Interpretation Code 0.9 - 1.6 ratio ADM SS ALP [Catalytic activity/Vol] 309 U/L Invalid Interpretation Code 38 - 126 U/L ADM SS ALT No additional P-5'-P [Catalytic activity/Vol] 1039 U/L Invalid Interpretation Code 10 - 49 U/L ADM SS AST [Catalytic activity/Vol] 631 U/L Invalid Interpretation Code 8 - 34 U/L ADM SS Basophils (Bld) [#/Vol] 0.0 103/mcL Invalid Interpretation Code 0.0 - 0.3 10^3/mcL AH Workflow SS Basophils/100 WBC (Bld) 0.6 % Invalid Interpretation Code 0.0 - 2.5 % AH Workflow SS Bilirubin [Mass/Vol] 1.40 mg/dL Invalid Interpretation Code 0.20 - 1.20 mg/dL AH ADM SS Calcium [Mass/Vol] 9.3 mg/dL Invalid Interpretation Code 8.7 - 10.4 mg/dL ADM SS Chloride [Moles/Vol] 102 mmol/L Invalid Interpretation Code 98 - 110 mEq/L ADM SS CO2 [Moles/Vol] 32 mmol/L Invalid Interpretation Code 22 - 32 mEq/L ADM SS Creatinine [Mass/Vol] 0.49 mg/dL Invalid Interpretation Code 0.50 - 1.20 mg/dL ADM SS Electrolyte Balance 5.0 mEq/L Invalid Interpretation Code 4.0 - 15.0 mEq/L ADM SS Eosinophils (Bld) [#/Vol] 0.1 103/mcL Invalid Interpretation Code 0.0 - 0.7 10^3/mcL Workflow SS Eosinophils/100 WBC (Bld) 1.8 % Invalid Interpretation Code 0.0 - 6.0 % Workflow SS Erythrocyte distribution width (RBC) [Ratio] 15.0 % Invalid Interpretation Code 11.5 - 15.5 % Workflow SS GFR/1.73 sq M.predicted among blacks MDRD (S/P/Bld) [Vol rate/Area] ml/min/1.73sqm Invalid Interpretation Code Chemistry S GFR/1.73 sq M.predicted among non-blacks MDRD (S/P/Bld) [Vol rate/Area] ml/min/1.73sqm Invalid Interpretation Code Chemistry S Globulin 4.1 G/dL Invalid Interpretation Code 1.5 - 3.8 G/dL ADM SS Glucose [Mass/Vol] 110 mg/dL Invalid Interpretation Code 70 - 110 mg/dL ADM SS Hematocrit (Bld) [Volume fraction] 46.3 % Invalid Interpretation Code 34.0 - 46.0 % Workflow SS Hemoglobin (Bld) [Mass/Vol] 15.1 G/dL Invalid Interpretation Code 12.0 - 16.0 G/dL Workflow SS LDH Lactate to pyruvate reaction [Catalytic activity/Vol] 341 1 Invalid Interpretation Code 120 - 246 U/L ADM SS Lymphocytes (Bld) [#/Vol] 1.5 103/mcL Invalid Interpretation Code 0.9 - 4.3 10^3/mcL Workflow SS Lymphocytes/100 WBC (Bld) 27.7 % Invalid Interpretation Code 20.0 - 40.0 % Workflow SS MCH (RBC) [Entitic mass] 28.7 pg Invalid Interpretation Code 27.0 - 33.0 pg AH Workflow SS MCHC 32.6 G/dL Invalid Interpretation Code 32.0 - 36.0 G/dL AH Workflow SS MCV (RBC) [Entitic vol] 88.0 fL Invalid Interpretation Code 80.0 - 99.0 fL AH Workflow SS Monocytes (Bld) [#/Vol] 0.5 103/mcL Invalid Interpretation Code 0.1 - 1.4 10^3/mcL AH Workflow SS Monocytes/100 WBC (Bld) 9.6 % Invalid Interpretation Code 2.0 - 13.0 % AH Workflow SS Neutrophils (Bld) [#/Vol] 3.4 103/mcL Invalid Interpretation Code 2.3 - 8.1 10^3/mcL AH Workflow SS Neutrophils/100 WBC (Bld) 60.3 % Invalid Interpretation Code 50.0 - 75.0 % AH Workflow SS Platelet mean volume (Bld) [Entitic vol] 11.1 fL Invalid Interpretation Code 6.6 - 10.5 fL AH Workflow SS Platelets (Bld) [#/Vol] 81 103/mcL Invalid Interpretation Code 150 - 450 10^3/mcL AH Workflow SS Potassium [Moles/Vol] 4.3 mmol/L Invalid Interpretation Code 3.5 - 5.0 mEq/L ADM SS Protein [Mass/Vol] 7.8 G/dL Invalid Interpretation Code 5.7 - 8.2 G/dL ADM SS RBC (Bld) [#/Vol] 5.26 106/mcL Invalid Interpretation Code 4.10 - 5.30 10^6/mcL AH Workflow SS Sodium [Moles/Vol] 139 mmol/L Invalid Interpretation Code 136 - 145 mEq/L ADM SS Urea nitrogen [Mass/Vol] 8.0 mg/dL Invalid Interpretation Code 8.0 - 22.0 mg/dL ADM SS Urea nitrogen/Creatinine [Mass ratio] 16.3 ratio Invalid Interpretation Code 10.0 - 22.0 ratio AH ADM SS WBC (Bld) [#/Vol] 5.6 103/mcL Invalid Interpretation Code 4.5 - 10.8 10^3/mcL AH Workflow SS Encounters Encounter Date Encounter Type Care Provider Facility Start: 12-16-2024 End: 12-16-2024 ambulatory No Primary Care Physician -[facility] [place] Start: 12-16-2024 End: 12-16-[address] Dali Rivera MD -[facility] [place] Work Phone: Start: 12-16-2024 End: 12-16-2024 ambulatory Dali Rivera Facility:[facility] Start: 09-22-2024 End: 09-22-[address] SHAYY HAYWARD MD Facility:A Start: 09-22-2024 End: 09-22-[address] NAHUM PRETTY [facility] Start: 09-08-2024 End: 09-08-2024 ambulatory NAHUM PRETTY [facility] Start: 03-29-2024 End: 03-29-[address] SHAYY HAYWARD MD Facility:A Start: 03-29-2024 End: 03-29-[address] NAHUM PRETTY MD [facility] Start: 02-23-2024 End: 02-23-[address] SHAYY HAYWARD MD Facility:A Start: 02-23-2024 End: 02-23-[address] NAHUM PRETTY MD [facility] Start: 02-18-2024 End: 02-18-[address] [facility] Start: 01-26-2024 End: 01-26-2024 ambulatory JAELYN ROJAS MD Facility:A Start: 01-26-2024 End: 01-26-2024 Patient encounter procedure JAELYN ROJAS MD [facility] Start: 01-21-2024 End: 01-21-[address] [facility] Start: 11-24-2023 End: 11-24-2023 ambulatory CAROLYN VELAZQUEZ Facility:A Start: 11-24-2023 End: 11-24-2023 Patient encounter procedure CAROLYN DEVINE [facility] Start: 11-10-2023 End: 11-10-[address] [facility] Start: 05-14-2023 End: 05-14-2023 ambulatory CLINT ARANA MD Facility:A Start: 05-14-2023 End: 05-14-2023 Patient encounter procedure CLINT ARANA MD [facility] Start: 11-03-2022 End: 11-03-2022 Patient encounter procedure CLINT ARANA MD [facility] Start: 04-04-2022 End: 04-04-2022 Patient encounter procedure DEB MCQUEEN MD [facility] Start: 03-25-2022 End: 03-25-2022 Patient encounter procedure CLINT ARANA MD [facility] Start: 03-18-2022 End: 03-18-2022 Patient encounter procedure CLINT ARANA MD [facility] Procedures Date Procedure Procedure Detail Performing Clinician Start: 12-16-2024 Laboratory data interpretation No Primary Care Physician Comment on above: No lupus anticoagula nt was detected. An extended dRVVT that corrects onmixing with normal plasma can be caused by a deficiency of one of thecommon pathway factors (X, V, II or fibrinogen).Performed at: [address] [id number] Director: Estela Mckee MD, Phone: [phone] Start: 12-16-2024 Lupus anticoagulant assay, platelet neutralization method No Primary Care Physician Start: 12-16-2024 Lupus anticoagulant screening test No Primary Care Physician Start: 12-16-2024 Procedure No Primary Care Physician Start: 12-16-2024 Prothrombin time No Aarti [facility] Care Physician Start: 12-16-2024 Urnls dip stick/tabl et reagent auto microscopy No Primary Care Physician CT of chest CLINT MONTANO MD Comment on above: 2021 None (qualifier value) MICHEL ARANA MD Ultrasonography CLINT GUZMAN MD Comment on above: US LIVER 2021 Payers Date Payer Category Payer Self-pay 2024 Unknown [id number] 2024 Unknown [id number] 2024 Unknown [id number] 2023 Unknown [id number] 1966 Unknown [id number] 2.16.8 [id number] 1966 Unknown [id number] 2.16.8 [id number] 1966 Unknown [id number] 2.16.8 [id number] 1966 Unknown [id number] 2.16.8 [id number] 1966 Unknown [id number] 2.16.8 [id number] 1966 Unknown [id number] 2.16.8 [id number] 1966 Unknown [id number] 2.16.8 [id number] 1966 Unknown [id number] 2.16.8 [id number] 1966 Unknown [id number] 2.16.8 [id number] 1966 Unknown [id number] 2.16.8 [id number] 1966 Unknown [id number] 2.16.8 [id number] Unknown [id number] Unknown [id number] 2.16.8 [id number] Social History Date Type Detail Facility Start: 06-21-2021 Tobacco smoking status Never s moked tobacco (finding) [facility] Start: 1965 Sex Assigned At Female A [facility] Sexual Orientation [facility] Start: 03-21-2021 Sex Female (finding) [facility] Work Phone: Clinical Notes LaboratoryLaboratoryRadiologyLaboratoryRadiologyLaboratoryRadiologyLaboratoryLab oratoryLaboratoryLaboratoryLaboratoryRadiologyLaboratory Note Date & Type Note Facility Evaluation + Plan note Future Appointments Appointment Date:03/25/2022 02:00:00 PM Scheduled Provider:CLINT ARANA MD Location:[facility] Appointment Type:[facility] OV Follow Up Future Scheduled TestsLactate Dehydrogenase 01/19/Lactate Dehydrogenase 01/14/22Complete Blood Count 01/19/22Complete Blood Count 01/14/22Complete Metabolic Panel 01/19/22Complete Metabolic Panel 01/14/22 [facility] Evaluation + Plan note Future Appointments Appointment Date:07/29/2022 01:45:00 PM Scheduled Provider:CLINT ARANA MD Location:[facility] Appointment Type:[facility] OV Follow Up Future Scheduled TestsLactate Dehydrogenase 01/19/Lactate Dehydrogenase 01/14/22Complete Blood Count 01/19/22Complete Blood Count 07/26/22Complete Blood Count 01/14/22Complete Metabolic Panel 01/19/22Complete Metabolic Panel 07/26/22Complete Metabolic Panel 01/14/22US Abdomen Limited 03/25/22 [facility] Evaluation + Plan note Future Appointments Appointment Date:07/29/2022 01:45:00 PM Scheduled Provider:CLINT ARANA MD Location:[facility] Appointment Type:[facility] OV Follow Up Diagnostic Tests PendingAntinuclear Antibody Screen, Serum 04/04/22Cyclic Citrullinated Peptide 04/04/22Cytoplasmic Neutro. Antibody 04/04/22Rheumatoid Factor 04/04/22 Future Scheduled TestsLactate Dehydrogenase 01/19/22Lactate Dehydrogenase 01/14/22Complete Blood Count 01/19/22Complete Blood Count 07/26/22Complete Blood Count 01/14/22Complete Metabolic Panel 01/19/22Complete Metabolic Panel 07/26/22Complete Metabolic Panel 01/14/22US Abdomen Limited 03/25/22 [facility] Evaluation + Plan note Future Appointments Appointment Date:04/06/2023 11:45:00 AM Scheduled Provider:CLINT ARANA MD Location:[facility] Appointment Type:[facility] OV Follow Up Future Scheduled TestsLactate Dehydrogenase 04/05/23Lactate Dehydrogenase 01/19/22Lactate Dehydrogenase 01/26/23Lactate Dehydrogenase 01/14/22Complete Blood Count 04/05/23Complete Blood Count 01/19/22Complete Blood Count 07/26/22Complete Blood Count 01/26/23Complete Blood Count 01/14/22Complete Metabolic Panel 04/05/23Complete Metabolic Panel 01/19/22Complete Metabolic Panel 07/26/22Complete Metabolic Panel 01/26/23Complete Metabolic Panel 01/14/22CT Thorax w/o Contrast 07/24/22US Abdomen Limited 03/25/22 [facility] Evaluation + Plan note Future Appointments Appointment Date:01/26/2024 11:30:00 AM Scheduled Provider:JAELYN ROJAS MD Location:[facility] Appointment Type:[facility] OV Follow Up Future Scheduled TestsLactate Dehydrogenase 01/24/24Lactate Dehydrogenase 04/05/23Lactate Dehydrogenase 01/26/23Lactate Dehydrogenase 11/13/23Complete Blood Count 01/24/24Complete Blood Count 04/05/23Complete Blood Count 01/26/23Complete Blood Count 11/13/23Complete Metabolic Panel 01/24/24Complete Metabolic Panel 04/05/23Complete Metabolic Panel 01/26/23Complete Metabolic Panel 11/13/23 [facility] Evaluation + Plan note Future Appointments Appointment Date:02/23/2024 11:30:00 AM Scheduled Provider:NAHUM PRETTY MD Location:[facility] Appointment Type:[facility] OV Follow Up Future Scheduled TestsLactate Dehydrogenase 01/24/24Lactate Dehydrogenase 04/05/23Lactate Dehydrogenase 02/23/24Lactate Dehydrogenase 01/26/23Lactate Dehydrogenase 11/13/23Vitamin B12 Level 02/23/24Complete Blood Count 01/24/24Complete Blood Count 04/05/23Complete Blood Count 02/23/24Complete Blood Count 01/26/23Complete Blood Count 11/13/23Complete Metabolic Panel 01/24/24Complete Metabolic Panel 04/05/23Complete Metabolic Panel 02/23/24Complete Metabolic Panel 01/26/23Complete Metabolic Panel 11/13/23 [facility] Evaluation + Plan note Future Appointments Appointment Date:03/29/2024 10:30:00 AM Scheduled Provider:NAHUM PRETTY MD Location:[facility] Appointment Type:Telephone Diagnostic Tests PendingAnticardiolipin Ab, IgA, Qn 02/23/24Anticardiolipin Ab, IgG, Qn 02/23/24Anticardiolipin Ab, IgM, Qn 02/23/24Free K+L Lt Chains,Qn,S 02/23/24Beta-2 Glycoprotein I Ab, IgA 02/23/24Beta-2 Glycoprotein I Ab,G/M 02/23/24Circulating Anticoagulants - Panel 02/23/24Rheumatoid Factor 02/23/24Platelet Antibody Profile 02/23/24ANA by IFA Screen 02/23/24EBV Antibody Profile 02/23/24Factor VIII Assay 02/23/24Von Willebrand Related Antigen 02/23/24 Future Scheduled TestsLactate Dehydrogenase 01/24/24Lactate Dehydrogenase 04/05/23Lactate Dehydrogenase 02/23/24Lactate Dehydrogenase 11/13/23Vitamin B12 Level 02/23/24Complete Blood Count 01/24/24Complete Blood Count 04/05/23Complete Blood Count 02/23/24Complete Blood Count 03/08/24Complete Blood Count 03/22/24Complete Blood Count 11/13/23Complete Metabolic Panel 01/24/24Complete Metabolic Panel 04/05/23Complete Metabolic Panel 02/23/24Complete Metabolic Panel 11/13/23 [facility] Evaluation + Plan note Future Appointments Appointment Date:06/27/2024 01:00:00 PM Scheduled Provider:NAHUM PRETTY MD Location:[facility] Appointment Type:[facility] OV Follow Up Future Scheduled TestsAnticardiolipin Ab, IgA, Qn 06/06/24Anticardiolipin Ab, IgM, Qn 06/06/24Anticardiolipin Ab, IgG, Qn 06/06/24Beta-2 Glycoprotein I Ab,G/M 06/06/24Beta-2 Glycoprotein I Ab, IgA 06/06/24Basic Metabolic Panel 03/29/24Lactate Dehydrogenase 01/24/24Lactate Dehydrogenase 04/05/23Lactate Dehydrogenase 02/23/24Lactate Dehydrogenase 11/13/23Vitamin B12 Level 02/23/24Complete Blood Count 01/24/24Complete Blood Count 04/05/23Complete Blood Count 02/23/24Complete Blood Count 03/08/24Complete Blood Count 03/22/24Complete Blood Count 11/13/23Circulating Anticoagulants - Panel 06/06/24Complete Metabolic Panel 01/24/24Complete Metabolic Panel 04/05/23Complete Metabolic Panel 02/23/24Complete Metabolic Panel 11/13/23 [facility] Evaluation + Plan note Future Appointments Appointment Date:11/13/2023 10:45:00 AM Scheduled Provider:CLINT ARANA MD Location:[facility] Appointment Type:[facility] OV Follow Up Future Scheduled TestsLactate Dehydrogenase 04/05/23Lactate Dehydrogenase 01/26/23Lactate Dehydrogenase 11/13/23Complete Blood Count 04/05/23Complete Blood Count 07/26/22Complete Blood Count 01/26/23Complete Blood Count 11/13/23Complete Metabolic Panel 04/05/23Complete Metabolic Panel 07/26/22Complete Metabolic Panel 01/26/23Complete Metabolic Panel 11/13/23CT Thorax w/o Contrast 07/24/22 [facility] Evaluation + Plan note Future Appointments Appointment Date:03/28/2025 01:45:00 PM Scheduled Provider:NAHUM PRETTY MD Location:[facility] Appointment Type:[facility] OV Follow Up w/ Future Scheduled TestsAnticardiolipin Ab, IgA, Qn 06/06/24Anticardiolipin Ab, IgM, Qn 06/06/24Anticardiolipin Ab, IgG, Qn 06/06/24Beta-2 Glycoprotein I Ab,G/M 06/06/24Beta-2 Glycoprotein I Ab, IgA 06/06/24Basic Metabolic Panel 03/29/24Lactate Dehydrogenase 01/24/24Lactate Dehydrogenase 02/23/24Lactate Dehydrogenase 11/13/23Vitamin B12 Level 02/23/24Complete Blood Count 01/24/24Complete Blood Count 03/24/25Complete Blood Count 02/23/24Complete Blood Count 03/08/24Complete Blood Count 03/22/24Complete Blood Count 11/13/23Circulating Anticoagulants - Panel 06/06/24Complete Metabolic Panel 01/24/24Complete Metabolic Panel 02/23/24Complete Metabolic Panel 11/13/23 [facility] Evaluation note No assessment information availa [facility] Work Phone: Hospital course Narrative No data available for this section [facility] Hospital Discharge instructions No data available for this section [facility] Progress note No data available for this section [facility] Reason for referral (narrative) No reason for referral information available [facility] Work Phone: Summary Purpose Family History No Family History Records Found Advance Directives No Advanced Directives Records FoundNo Advanced Directives Records FoundNo Advanced Directives Records FoundNo Advanced Directives Records Found Additional Source Comments Care Team (unrecognized sect ion and content) Care Team Personnel Name: SHAYY HAYWARD MD Position: Physician Med Service: Active Provider Member Role: Primary Care Physician Address: Address: [address] [place] [address] [address] Care Team Related Persons Name: YAMEL BULL Care Team Personnel Name: SHAYY HAYWARD MD Position: Physician Member Role: Primary Care Physician Address: Address: [address] [place] [address] [address] Care Team Related Persons Name: YAMEL BULL Care Team Personnel Name: SHAYY HAYWARD MD Position: Physician Member Role: Primary Care Physician Address: Address: [address] [place] [address] [address] Care Team Related Persons Name: YAMEL BULL Patient Care team informatio n (unrecognized section and content) Team Status: Active Member Role/Relationship Status Dates No Primary Care Physician Primary Care Provider Active Team Status: Inactive Member Role/Relationship Status Dates No Primary Care Physician Primary Care Provider Active Start: December 16, 2024 End: December 16, 2024 Dr. Dali Rivera MD Attending Provider Active Start: December 16, 2024 End: December 16, 2024 Dr. Dali Rivera MD Referring Provider Active Start: December 16, 2024 End: December 16, 2024 INFORMATION SOURCE (unrecogn ized section and content) DATE CREATED AUTHOR 01/28/2024 [facility] ([place]) DATE CREATED AUTHOR AUTHOR'S ORGANIZ ATION 09/27/2024 [facility] DATE CREATED AUTHOR AUTHOR'S ORGANIZ ATION 09/30/2024 [facility] DATE CREATED AUTHOR AUTHOR'S ORGANLEONOR ATION 12/23/2024 [facility] Goals (unrecognized section and content) Goals may be documented in a n alternate section FOR RECORDS PERTAINING TO PATIENTS WHO ARE OR HAVE BEEN ENROLLED IN A CHEMICAL DEPENDENCY/SUBSTANCEABUSE PROGRAM, SOME INFORMATION MAY BE OMITTED. This clinical summary was aggregated from multiple sources. Caution should be exercised in using it in the provision of clinical care. This summary normalizes information from multiple sources, and as a consequence, information in this document may materially change the coding, format and clinical context of patient data. In addition, data may be omitted in some cases. CLINICAL DECISIONS SHOULD BE BASED ON THE PRIMARY CLINICAL RECORDS. [facility] [employer] provides no warranty or guarantee of the accuracy or completeness of information in this document.
[2025-01-10 08:32] LABS: EXAGEN MAILED SPECIMEN
== END | disposition home or self-care (01) ==
LOC: MTLAB 07:24
PROVIDERS: Referring Provider Internal Medicine Rheumatology; Visit Provider Internal Medicine Rheumatology
DX: D69.3 Immune thrombocytopenic purpura (principal); M18.0 Bilateral primary osteoarthritis of first carpometacarpal joints; Q66.70 Congenital pes cavus, unspecified foot; R76.0 Raised antibody titer; R76.8 Other specified abnormal immunological findings in serum